=== PATIENT | male | born 1950 | race Caucasian/White ===

== ENCOUNTER 2018-01-27 08:27 | Inpatient (IN) ==
--- OUTSIDE RECORDS SUMMARY | 2018-01-27 07:53 | External Medical Summary | Summary of Care ---
:1950 Author Name Juan Miguel Martin M.D. Address [address] [place] [address] [place] [address] Care Team Providers Name Role Phone Juan Miguel Martin M.D. 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 Quantity: 30 Refills: 0 Juan Miguel Martin M.D. Start : 26-Aug-2015 Active Multivitamins Oral Capsule TAKE 1 CAPSULE DAILY. Refills: 0 Start : 26-Aug-2015 Active Tamsulosin HCl - 0.4 MG Oral Capsule TAKE 1 TABLET BY MOUTH DAILY Refills: 0 Start : 26-Aug-2015 Active Sertraline HCl - 100 MG Oral Tablet TAKE 1 TABLET DAILY. Refills: 0 Start : 26-Aug-2015 Active Atorvastatin Calcium 10 MG Oral Tablet TAKE 1 TABLET DAILY. Refills: 0 Start : 26-Aug-2015 Active Potassium Citrate ER 10 MEQ (1080 MG) Oral Tablet Extended Release TAKE 1 TABLET TWICE DAILY. Quantity: 180 Refills: 3 Juan Miguel Martin M.D. Start : 12-Dec-2015 Active Labetalol HCl - 200 MG Oral Tablet TAKE 1 TABLET TWICE DAILY. Refills: 0 Juan Miguel Martin M.D. Start : 10-Mar-2016 Active ZyrTEC Allergy 10 MG Oral Tablet TAKE 1 TABLET AT BEDTIME. Refills: 0 Juan Miguel Martin M.D. Start : 10-Mar-2016 Active Aspirin 325 MG Oral Tablet TAKE 1 TABLET DAILY. Refills: 0 Start : 10-Mar-2016 Active Fenofibrate 160 MG Oral Tablet TAKE 1 TABLET DAILY. Refills: 0 Start : 10-Mar-2016 Active Tradjenta 5 MG Oral Tablet TAKE 1 TABLET DAILY. Refills: 0 Start : 10-Mar-2016 Active Omeprazole 20 MG Oral Capsule Delayed Release TAKE 1 CAPSULE DAILY. Refills: 0 Start : 10-Mar-2016 Active AmLODIPine Besylate 10 MG Oral Tablet TAKE 1 TABLET DAILY. Refills: 0 Cho M.Juan Miguel Jo Start : 10-Mar-2016 Active Fluticasone Propionate 50 MCG/ACT Nasal Suspension USE 1 SPRAY IN EACH NOSTRIL ONCE DAILY. Refills: 0 Start : 10-Mar-2016 Active HydroCHLOROthiazide 25 MG Oral Tablet TAKE 1/2 TABLET DAILY. Refills: 0 Cho M.DJuan Miguel Grande Start : 09-Mar-2017 Active Allergies and Adverse Reactions Name Dates Details Dilaudid (Allergy) Status: Active NIFEdipine (Allergy) Status: Denied oxycodone (Allergy) Status: Active OxyCONTIN T12A (Allergy) Status: Active Penicillins (Allergy) Status: Active tramadol (Allergy) Status: Active trazodone (Allergy) Status: Active Past Medical History Name Dates Details History of Anxiety (300.00, F41.9) Status: Resolved History of Benign essential HTN (401.1, I10) Status: Resolved History of chronic kidney disease (V13.09, Z87.448) Status: Resolved History of Chronic pain (338.29, G89.29) Status: Resolved History of chronic sinusitis (V12.69, Z87.09) Status: Resolved History of Depressive disorder (311, F32.9) Status: Resolved History of Dysmetabolic syndrome X (277.7, E88.81) Status: Resolved History of Elevated serum creatinine (790.99, R79.89) Status: Resolved History of Encounter for postoperative care (V58.49, Z48.89) Status: Resolved History of hypercholesterolemia (V12.29, Z86.39) Status: Resolved History of Hyperuricemia (790.6, E79.0) Status: Resolved History of insomnia (., Z87.898) Status: Resolved History of renal calculi (V13.01, Z87.442) Status: Resolved History of right flank pain (, Z87.898) Status: Resolved Procedures Procedure Dates Details PSA ( PROSTATE SPECIFIC ANTIGEN) 3100 Date: 10-Mar-2017 Testosterone 3102 Date: 10-Mar-2017 History of Renal Lithotripsy Completed History of Transurethral Resection Of Prostate (TURP) Completed History of Hernia Repair Completed History of Neuroplasty Decompression Median Nerve At Completed Carpal Tunnel History of Septoplasty Completed History of Arterial Catheterization Completed History of Intraoperative Transluminal Angioplasty Renal Completed Artery Immunization Name Dates Details Immunizations not documented Family History Unknown Family Member Name Dates Details Family history of High triglycerides (272.1, E78.1) Comments: Family History Status: Active Family history of diabetes mellitus (V18.0, Z83.3) Comments: Family History Status: Active No family history of breast cancer Comments: Family History Status: Active No family history of cancer (V49.89, Z78.9) Comments: Family History Status: Active Social History Name Dates Details - Status: Smoking Status Name Dates Details Never smoker Vital Signs Date Test Result Details [id number] BP Systolic 116 mm[Hg] Status: Comments: Location: Wrist Cuff; Position: Sitting BP Diastolic 65 mm[Hg] Status: Comments: Location: Wrist Cuff; Position: Sitting Heart Rate 65 /min Status: Comments: Location: R Radial; Respiration Rate 16 /min Status: Results Date Description Value Details Results not documented Plan of Care Name Dates Details Planned Observations PSA ( PROSTATE SPECIFIC ANTIGEN) 3100 On: 10-Mar-2017 Intent Testosterone 3102 On: 10-Mar-2017 Intent Planned Goals not documented Planned Encounters Appointment; Juan Miguel Martin M.D. On: 08-Mar-2018 10:45 Instructions Name Dates Details Instructions not documented Encounters Appointment; Juan Miguel Martin M.D. On: 10-Mar-2016 10:30 Encounter Diagnosis: Problem not documented Appointment; Juan Miguel Martin M.D. On: 09-Mar-2017 10:30 Encounter Diagnosis: Problem not documented
--- OUTSIDE RECORDS SUMMARY | 2018-01-27 07:53 | External Medical Summary | Summary of Care ---
:1950 Author Name Juan Miguel Martin M.D. Address [address] [place] [address] [place] [address] Care Team Providers Name Role Phone Juan Miguel Martin M.D. 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 Quantity: 90 Refills: 3 Juan Miguel Martin M.D. Start 26-Aug-2015 Active Multivitamins Oral Capsule TAKE 1 CAPSULE DAILY. Refills: 0 Start 26-Aug-2015 Active Tamsulosin HCl - 0.4 MG Oral Capsule TAKE 1 TABLET BY MOUTH DAILY Refills: 0 Start 26-Aug-2015 Active Gemfibrozil 600 MG Oral Tablet TAKE 1 TABLET DAILY. Refills: 0 Start 26-Aug-2015 Active AMILoride-HydroCHLOROthiazide 5-50 MG Oral Tablet TAKE 1 TABLET ONCE DAILY. Refills: 0 Start 26-Aug-2015 Active Sertraline HCl - 100 MG Oral Tablet TAKE 1 TABLET DAILY. Refills: 0 Start 26-Aug-2015 Active Mirtazapine 15 MG Oral Tablet TAKE 1 TABLET AT BEDTIME. Refills: 0 Start 26-Aug-2015 Active Atorvastatin Calcium 10 MG Oral Tablet TAKE 1 TABLET DAILY. Refills: 0 Start 26-Aug-2015 Active Potassium Citrate ER 10 MEQ (1080 MG) Oral Tablet Extended Release TAKE 1 TABLET TWICE DAILY. Quantity: 180 Refills: 3 Juan Miguel Martin M.D. Start 12-Dec-2015 Active Labetalol HCl - 200 MG Oral Tablet TAKE 1 TABLET TWICE DAILY. Refills: 0 Juan Miguel Martin M.D. Start Active ZyrTEC Allergy 10 MG Oral Tablet TAKE 1 TABLET AT BEDTIME. Refills: 0 Mario Partida.Sandro Juan Miguel Start Active Aspirin 325 MG Oral Tablet TAKE 1 TABLET DAILY. Refills: 0 Start Active Fenofibrate 160 MG Oral Tablet TAKE 1 TABLET DAILY. Refills: 0 Start Active Tradjenta 5 MG Oral Tablet TAKE 1 TABLET DAILY. Refills: 0 Start Active Omeprazole 20 MG Oral Capsule Delayed Release TAKE 1 CAPSULE DAILY. Refills: 0 Start Active AmLODIPine Besylate 10 MG Oral Tablet TAKE 1 TABLET DAILY. Refills: 0 Mario M.DHarjinder Juan Miguel Start Active Fluticasone Propionate 50 MCG/ACT Nasal Suspension USE 1 SPRAY IN EACH NOSTRIL ONCE DAILY. Refills: 0 Start Active Allergies and Adverse Reactions Name Dates Details Dilaudid (Allergy) Status: Active NIFEdipine (Allergy) Status: Active oxycodone (Allergy) Status: Active OxyCONTIN T12A (Allergy) [...] postoperative care (V58.49, Z48.89) Status: Resolved History Of Hypercholesterolemia (V12.29, Z86.39) Status: Resolved History of Hyperuricemia (790.6, E79.0) Status: Resolved History of insomnia (V13.89, Z87.898) Status: Resolved History of renal calculi (V13.01, Z87.442) Status: Resolved History of right flank pain (V13.89, Z87.898) Status: Resolved Procedures Procedure Dates Details History of Renal Lithotripsy History of Transurethral Resection Of Prostate (TURP) History of Hernia Repair History of Neuroplasty Decompression Median Nerve At Carpal Tunnel History of Septoplasty History of Arterial Catheterization History of Intraoperative Transluminal Angioplasty Renal Artery PSA ( PROSTATE SPECIFIC ANTIGEN) 3100 Ordered: Immunization Name Dates Details Immunizations not documented [...] smoker Vital Signs Date Test Result Details 11:15 BP Systolic 159 mm[Hg] Status: Comments: Location: ; Position: BP Diastolic 85 mm[Hg] Status: Comments: Location: ; Position: Heart Rate 64 /min Status: Comments: Location: ; Height 69 in Status: Weight 175 lb Status: Body Mass Index Calculated 25.84 kg/m2 Status: Body Surface Area Calculated 1.95 m2 Status: Results Date Description Value Details Results not documented Plan of Care Name Dates Details Planned Observations Planned Goals not documented Planned Encounters Appointment; Provider: Juan Miguel Martin M.D. On 10:30 Interventions Provided Labs/Procedures/ImagingPSA ( PROSTATE SPECIFIC ANTIGEN) 3100; To be Done: 10 Mar 2016 Instructions Name Dates Details Instructions not documented Encounters Appointment; Juan Miguel Martin M.D. On Encounter Diagnosis: Problem not documented 10:30
--- OUTSIDE RECORDS SUMMARY | 2018-01-27 07:53 | External Medical Summary | CCD ---
:1950 Author Name CHARLIE ALVARENGA Address [address] [place], [place] [id number] Care Team Providers Name Role Phone BETY MARIANO Attending Physician Unavailable SAMI Agustin Registered Nurse Unavailable C., DEYA Velasquez Nursing Staff Unavailable Vital Signs Vital Sign Value Unit Date/Time Recent/Initial? Weight Measured 174 lbs 01/20/2016 08:26 Initial VS Height 69 in 01/20/2016 08:26 Initial VS BMI (Body Mass 25.7 kg/m^2 01/20/2016 08:26 Initial VS Index) BSA (Body Surface 1.96 m^2 01/20/2016 08:26 Initial VS Area) Allergies Allergy Code Allergy Type Reaction Status OXYCONTIN 938712 Drug allergy Active LATEX 0 Allergy to Active substance TRAZODONE 28942 Drug allergy Active NIFEDIPINE 7417 Drug allergy Active LORTAB 303779 Drug allergy Active DILAUDID 884365 Drug allergy Active LOSARTAN 7417 Drug allergy Active PENICILLIN 49741 Drug allergy Active LISINOPRIL 7417 Drug allergy Active OXYCODONE 7804 Drug allergy Active Procedures Procedure Code Procedure Type Date Repair, Initial Inguinal 13264 CPT 01/20/2016 Hernia, Age 5+; Reducible Anesthesia For Hernia 32031 CPT 01/20/2016 Repairs In Lower Abdomen; NOS History of Immunizations Immunization Code Date influenza, unspecified formulation 88 06/14/2012 tetanus toxoid, unspecified 112 08/14/2009 formulation Problems Unknown or Not Available. Results Unknown or Not Available. Active Medications Unknown or Not Available. Medications Administered During Visit Unknown or Not Available. Encounters Encounter Diagnosis Diagnosis Code Start Date Unilateral inguinal hernia, K4090 01/20/2016 without obstruction or gangrene, not specified as recurrent Social History Smoking Status Code Start Date End Date Never smoker [id number] Patient Decision Aids Unknown or Not Available. Discharge Instructions You were admitted to [facility] on 01/20/2016 08:05 with a principal diagnosis of Unil inguinal hernia, w/o obst or gangr, not spcf as re You had the following procedures done: Repair, Initial Inguinal Hernia, Age 5+; Reducible Anesthesia For Hernia Repairs In Lower Abdomen; NOS You were discharged from [facility] on 01/20/2016 13:27 Should you have any questions prior to discharge, please contact a member of your healthcare team. If you have left the hospital and have any questions, please contact your primary care physician. Chief Complaint and Reason For Visit Chief Complaint Date of Onset HERNIA REPAIR Function Status Unknown or Not Available. Plan of Care Unknown or Not Available. Referral/Transition of Care Unknown or Not Available.
--- OUTSIDE RECORDS SUMMARY | 2018-01-27 07:53 | External Medical Summary | CCD ---
:1950 Author Name CHARLIE ALVARENGA Address [address], [place] [id number] Care Team Providers Name Role Phone DANIEL LAU Attending Physician Unavailable EVON FAUSTIN (Secondary) Physician Unavailable Vital Signs Unknown or Not Available. Allergies Allergy Code Allergy Type Reaction Status OXYCONTIN 457496 Drug allergy Active LATEX 0 Allergy to Active substance TRAZODONE 76595 Drug allergy Active NIFEDIPINE 7417 Drug allergy Active LORTAB 443847 Drug allergy Active DILAUDID 314138 Drug allergy Active LOSARTAN 7417 Drug allergy Active PENICILLIN 26815 Drug allergy Active LISINOPRIL 7417 Drug allergy Active OXYCODONE 7804 Drug allergy Active Procedures Unknown or Not Available. History of Immunizations Immunization Code Date influenza, unspecified formulation 88 06/14/2012 tetanus toxoid, unspecified 112 08/14/2009 formulation Problems Unknown or Not Available. Results RENAL FUNCTION PANEL - Collect Date/Time: 03/11/2016 14:22 Test Name Code Test Result Test Units Test Ref Range GLUCOSE 100 mg/dL L=70 H=110 BUN 25 mg/dL L=7 H=18 CREATININE 1.91 mg/dL L=0.60 H=1.30 AGE 65 YEARS GFR 35.8 SODIUM 139 mmol/L L=136 H=145 POTASSIUM 3.7 mmol/L L=3.5 H=5.1 CHLORIDE 102 mmol/L L=98 H=107 CO2 26 mmol/L L=21 H=32 CALCIUM 9.4 mg/dL L=8.5 H=10.1 ALBUMIN 4.4 g/dL L=3.4 H=5.0 PHOSPHORUS 3.5 mg/dL L=2.6 H=4.7 Active Medications Unknown or Not Available. Medications Administered During Visit Unknown or Not Available. Encounters Encounter Diagnosis Diagnosis Code Start Date Chronic kidney disease, stage N183 03/11/2016 3 (moderate) Social History Smoking Status Code Start Date End Date Never smoker [id number] Patient Decision Aids Unknown or Not Available. Discharge Instructions You were admitted to [facility] on 03/11/2016 14:13 with a principal diagnosis of Chronic kidney disease, stage 3 (moderate) You had the following tests done: RENAL FUNCTION PANEL You were discharged from [facility] on 03/11/2016 14:13 Should you have any questions prior to discharge, please contact a member of your healthcare team. If you have left the hospital and have any questions, please contact your primary care physician. Chief Complaint and Reason For Visit Chief Complaint Date of Onset LAB Function Status Unknown or Not Available. Plan of Care Unknown or Not Available. Referral/Transition of Care Unknown or Not Available.
--- OUTSIDE RECORDS SUMMARY | 2018-01-27 07:53 | External Medical Summary | CCD ---
:1950 Author Name CHARLIE ALVARENGA Address [address] [place], [place] [id number] Care Team Providers Name Role Phone DANIEL LAU Attending Physician Unavailable EVON FAUSTIN (Secondary) Physician Unavailable Vital Signs Unknown or Not Available. Allergies Allergy Code Allergy Type Reaction Status OXYCONTIN 821077 Drug allergy Active LATEX 0 Allergy to Active substance TRAZODONE 15590 Drug allergy Active NIFEDIPINE 7417 Drug allergy Active LORTAB 381342 Drug allergy Active DILAUDID 580610 Drug allergy Active LOSARTAN 7417 Drug allergy Active PENICILLIN 31766 Drug allergy Active LISINOPRIL 7417 Drug allergy Active OXYCODONE 7804 Drug allergy Active Procedures Unknown or Not Available. History of Immunizations Immunization Code Date influenza, unspecified formulation 88 06/14/2012 tetanus toxoid, unspecified 112 08/14/2009 formulation Problems Unknown or Not Available. Results RENAL FUNCTION PANEL - Collect Date/Time: 08/09/2016 08:30 Test Name Code Test Result Test Units Test Ref Range GLUCOSE 141 mg/dL L=70 H=110 BUN 21 mg/dL L=7 H=18 CREATININE 1.82 mg/dL L=0.60 H=1.30 AGE 65 YEARS GFR 37.8 L=60.0 H=120 SODIUM 140 mmol/L L=136 H=145 POTASSIUM 3.5 mmol/L L=3.5 H=5.1 CHLORIDE 105 mmol/L L=98 H=107 CO2 24 mmol/L L=21 H=32 CALCIUM 9.3 mg/dL L=8.5 H=10.1 ALBUMIN 4.3 g/dL L=3.4 H=5.0 PHOSPHORUS 3.1 mg/dL L=2.6 H=4.7 UA AUTO W/ MICRO - Collect Date/Time: 08/09/2016 08:33 Test Name Code Test Result Test Units Test Ref Range COLOR Yellow N/A NORMAL: Yellow APPEARANCE Clear N/A NORMAL: Clear GLUCOSE Negative N/A NORMAL: Negative BILIRUBIN Negative N/A NORMAL: Negative KETONE Negative N/A NORMAL: Negative SPEC GRAVITY 1.025 N/A NORMAL: 1.005-1.030 BLOOD Negative N/A NORMAL: Negative PROTEIN Negative N/A NORMAL: Negative PH 5.5 N/A NORMAL: 5.0-8.0 UROBILINOGEN 0.2 N/A NORMAL: Negative NITRITE Negative N/A NORMAL: Negative LEUKOCYTES Negative N/A NORMAL: Negative MICRO RBC None Seen N/A NORMAL: 0-2 MICRO WBC 0-2 N/A NORMAL: 0-2 BACTERIA None Seen N/A NORMAL: None-Trace EPI CELLS 0-5 N/A NORMAL: 0-15 MUCUS None Seen N/A NORMAL: None-Small AMORPHOUS None Seen N/A NORMAL: None Seen YEAST None Seen N/A NORMAL: None Seen CRYSTALS None Seen N/A NORMAL: None Seen CAST None Seen N/A NORMAL: None Seen URINE CULTURE? NO N/A CULTURE URINE - Collect Date/Time: 08/09/2016 08:33 Test Name Code Test Result Test Units Test Ref Range SPEC SOURCE: CLEAN CATCH N/A Urine Culture, 630-4 Final report N/A Routine Active Medications Unknown or Not Available. Medications Administered During Visit Unknown or Not Available. Encounters Encounter Diagnosis Diagnosis Code Start Date Chronic kidney disease, stage N183 08/09/2016 3 (moderate) Social History Smoking Status Code Start Date End Date Never smoker [id number] Patient Decision Aids Unknown or Not Available. Discharge Instructions You were admitted to [facility] on 08/09/2016 08:25 with a principal diagnosis of Chronic kidney disease, stage 3 (moderate) You had the following tests done: CULTURE URINE RENAL FUNCTION PANEL UA AUTO W / MICRO You were discharged from [facility] on 08/09/2016 08:26 Should you have any questions prior to [...]
--- OUTSIDE RECORDS SUMMARY | 2018-01-27 07:53 | External Medical Summary | Referral Summary ---
:1950 Author Organization [facility] Address [address] [place] [address] Care Team Providers Name Role Phone Peggy Flor Primary Care Physician Encounter VC Date(s): 04/11/17 - 04/11/17 [facility] [address] [place] [address] [phone] Discharge Disposition: 01-Home or Self Care Attending Physician: Bradley Weston MD Vital Signs Most recent to oldest [Reference Range]: 1 Temperature Oral [35.8-37.3 degC] 36.4 degC (04/11/17 10:42 AM) Temperature Temporal Artery [36.3-37.8 degC] 36.4 degC (04/11/17 10:42 AM) Apical Heart Rate [60-100 bpm] 60 bpm (04/11/17 10:42 AM) Respiratory Rate [14-20 br/min] 12 br/min *LOW* (04/11/17 10:42 AM) Allergies, Adverse Reactions, Alerts Substance Reaction Severity Status HYDROmorphone Active penicillin Active Medications allopurinol 300 mg oral tablet mg tabs, Oral, Daily, 0 Refill(s) Start Date: 04/11/17 Status: Orderedatorvastatin 20 mg oral tablet mg tabs, Oral, Daily, 0 Refill(s) Start Date: 04/11/17 Status: Orderedcetirizine Daily, 0 Refill(s) Start Date: 04/11/17 Status: Orderedfluticasone 50 mcg inhalation powder Inhalation, BID, 0 Refill(s) Start Date: 04/11/17 Status: Orderedlabetalol 300 mg oral tablet mg tabs, Oral, BID, 0 Refill(s) Start Date: 04/11/17 Status: OrderedMultiple Vitamins oral capsule caps, Oral, Daily, 0 Refill(s) Start Date: 04/11/17 Status: OrderedNIFEdipine 90 mg oral tablet, extended release mg tabs, Oral, Daily, 0 Refill(s) Start Date: 04/11/17 Status: Orderedpotassium citrate 10 mEq oral tablet, extended release mEq tabs, Oral, TID, 0 Refill(s) Start Date: 04/11/17 Status: OrderedraNITIdine 150 mg oral capsule mg caps, Oral, BID, 0 Refill(s) Start Date: 04/11/17 Status: Orderedsertraline 100 mg oral tablet mg tabs, Oral, Daily, 0 Refill(s) Start Date: 04/11/17 Status: Orderedtamsulosin 0.4 mg oral capsule mg caps, Oral, Daily, 0 Refill(s) Start Date: 04/11/17 Status: OrderedTradjenta 5 mg oral tablet 5 mg 1 tabs, Oral, Daily, # 30 tabs, 0 Refill(s) Start Date: 04/11/17 Status: OrderedtraMADol 50 mg oral tablet mg tabs, Oral, q4hr, 0 Refill(s) Start Date: 04/11/17 Status: Orderedtriamcinolone 0.1% topical cream lavinia, Topical, TID, 0 Refill(s) Start Date: 04/11/17 Status: OrderedTriCor 145 mg oral tablet mg tabs, Oral, Daily, 0 Refill(s) Start Date: 04/11/17 Status: OrderedZofran 4 mg oral tablet mg tabs, Oral, q8hr, 0 Refill(s) Start Date: 04/11/17 Status: Ordered Procedures Procedure Date Related Diagnosis Body Site Acid Test Esophageal (Right, Nose)1 04/11/17 Motility Esophageal (Right, Nose)2 04/11/17 Colonoscopy3 Esophagogastroduodenoscopy Hernia, inguinal Kidney calculi Nasal function study Tuna4 [place] tooth Wrist5 1auto-populated from documented surgical [id number] from documented surgical [id number] for [id number] carpal tunel surgery Social History Social History Type Response Smoking Status Never smoker
--- OUTSIDE RECORDS SUMMARY | 2018-01-27 07:53 | External Medical Summary | CCD ---
:1950 Author Name CHARLIE ALVARENGA Address [address], [place] [id number] Care Team Providers Name Role Phone DANIEL LAU Attending Physician Unavailable EVON FAUSTIN (Secondary) Physician Unavailable Vital Signs Unknown or Not Available. Allergies Allergy Code Allergy Type Reaction Status OXYCONTIN 111502 Drug allergy Active LATEX 0 Allergy to Active substance TRAZODONE 90346 Drug allergy Active NIFEDIPINE 7417 Drug allergy Active LORTAB 902128 Drug allergy Active DILAUDID 633921 Drug allergy Active LOSARTAN 7417 Drug allergy Active PENICILLIN 52385 Drug allergy Active LISINOPRIL 7417 Drug allergy Active OXYCODONE 7804 Drug allergy Active Procedures Unknown or Not Available. History of Immunizations Immunization Code Date influenza, unspecified formulation 88 06/14/2012 tetanus toxoid, unspecified 112 08/14/2009 formulation Problems Unknown or Not Available. Results RENAL FUNCTION PANEL - Collect Date/Time: 11/05/2015 08:30 Test Name Code Test Result Test Units Test Ref Range GLUCOSE 183 mg/dL L=70 H=110 BUN 23 mg/dL L=7 H=18 CREATININE 1.93 mg/dL L=0.60 H=1.30 AGE 64 YEARS GFR 35.5 SODIUM 140 mmol/L L=136 H=145 POTASSIUM 3.6 mmol/L L=3.5 H=5.1 CHLORIDE 104 mmol/L L=98 H=107 CO2 25 mmol/L L=21 H=32 CALCIUM 8.9 mg/dL L=8.5 H=10.1 ALBUMIN 4.5 g/dL L=3.4 H=5.0 PHOSPHORUS 3.4 mg/dL L=2.5 H=4.9 CBC (HEMOGRAM ONLY) - Collect Date/Time: 11/05/2015 08:30 Test Name Code Test Result Test Units Test Ref Range WBC 7.0 x10^3 L=4.8 H=10.8 RBC 4.60 x10^6 L=4.70 H=6.10 HEMOGLOBIN 14.0 g/dL L=14.0 H=18.0 HEMATOCRIT 42.4 % L=42.0 H=52.0 MCV 92 fL L=80 H=100 MCH 30.3 pg L=27.0 H=33.0 MCHC 33.0 g/dL L=33.0 H=37.0 RDW 13.3 % L=11.5 H=14.5 PLATELETS 426 x10^3 L=150 H=450 MPV 7.4 fL L=7.8 H=11.0 PROTEIN ELECTROPHORESIS, 24-HR URINE - Collect Date/Time: 11/05/2015 07:00 Test Name Code Test Result Test Units Test Ref Range Protein,Total,Urine 2888-6 4.0 mg/dL 0.0-15.0 Prot,24hr calculated 2889-4 100.0 30.0-150[place]0 [place] [address]-7 28.7 % NOT ESTAB. Nzrvl-5-Lcphwx[place] [address]-8 0.8 % NOT ESTAB. [place]ccut-[place] [address]-1 10.3 % [place] [address]-5 31.6 % [place] [address]-3 28.5 % NOT ESTAB. TOTAL VOLUME: 2500 N/A M-Drake, % 42783-6 Not Observed N/A Not Observed M-Drake, mg/24 hr 00543-6 HEAD OF DATA N/A PROTEIN ELECTROPHORESIS, SERUM - Collect Date/Time: 11/05/2015 08:30 Test Name Code Test Result Test Units Test Ref Range Protein, Total, 2885-2 7.3 g/dL 6.0-8.5 Serum Albumin 2862-1 4.1 g/dL 3.2-5.6 Kpnno-7-Ptawryfd 2865-4 0.2 g/dL 0.1-0.4 Vecys-6-Phixnyfp 2868-8 0.7 g/dL 0.4-1.2 Beta Globulin 2871-2 1.3 g/dL 0.6-1.3 Gamma Globulin 2874-6 1.0 g/dL 0.5-1.6 Globulin, Total 94578-5 3.2 g/dL 2.0-4.5 A/G Ratio 1759-0 1.3 0.7-2.0 M-Drake 33548-9 Not Observed N/A Not Observed PTH, INTACT - Collect Date/Time: 11/05/2015 08:30 Test Name Code Test Result Test Units Test Ref Range PTH, Intact 2731-8 14 pg/mL 15-65 Active Medications Unknown or Not Available. Medications Administered During Visit Unknown or Not Available. Encounters Unknown or Not Available. Social History Smoking Status Code Start Date End Date Never smoker [id number] Patient Decision Aids Unknown or Not Available. Discharge Instructions You were admitted to [facility] on 11/05/2015 08:23 You had the following tests done: CBC (HEMOGRAM ONLY) PROTEIN ELECTROPHORESIS, 24-HR URINE PROTEIN ELECTROPHORESIS, SERUM PTH, INTACT RENAL FUNCTION PANEL You were discharged from [facility] on 11/13/2015 23:59 Should you have any questions prior to discharge, please contact a member of your healthcare team. If you have left the hospital and have any questions, please contact your primary care physician. Chief Complaint and Reason For Visit Chief Complaint Date of Onset LAB RECURRING Function Status Unknown or Not Available. Plan of Care Unknown or Not Available. Referral/Transition of Care Unknown or Not Available.
--- OUTSIDE RECORDS SUMMARY | 2018-01-27 07:53 | External Medical Summary | CCD ---
:1950 Author Name CHARLIE ALVARENGA Address [address], [place] [phone] Care Team Providers Name Role Phone TAMIE ANNE Attending Physician Unavailable TAMIE ANNE Er Physician 1 Unavailable Vital Signs Unknown or Not Available. Allergies Allergy Code Allergy Type Reaction Status OXYCONTIN 524654 Drug allergy Active LATEX 0 Allergy to Active substance TRAZODONE 75326 Drug allergy Active NIFEDIPINE 7417 Drug allergy Active LORTAB 538633 Drug allergy Active DILAUDID 186090 Drug allergy Active LOSARTAN 7417 Drug allergy Active PENICILLIN 44525 Drug allergy Active LISINOPRIL 7417 Drug allergy Active OXYCODONE 7804 Drug allergy Active Procedures Unknown or Not Available. History of Immunizations Immunization Code Date influenza, unspecified formulation 88 06/14/2012 tetanus toxoid, unspecified 112 08/14/2009 formulation Problems Unknown or Not Available. Results BASIC METABOLIC - Collect Date/Time: 04/26/2016 15:56 Test Name Code Test Result Test Units Test Ref Range GLUCOSE 96 mg/dL L=70 H=110 BUN 25 mg/dL L=7 H=18 CREATININE 1.68 mg/dL L=0.60 H=1.30 AGE 65 YEARS GFR 41.5 SODIUM 142 mmol/L L=136 H=145 POTASSIUM 3.6 mmol/L L=3.5 H=5.1 CHLORIDE 105 mmol/L L=98 H=107 CO2 25 mmol/L L=21 H=32 CALCIUM 9.5 mg/dL L=8.5 H=10.1 CARDIAC PANEL - Collect Date/Time: 04/26/2016 15:56 Test Name Code Test Result Test Units Test Ref Range CKMB 1.9 ng/mL L=0.0 H=3.6 CPK 463 U/L L=26 H=308 CKMB% 0.4 % L=0.0 H=4.0 TROPONIN I 0.02 ng/mL L=0.00 H=0.05 CBC W/ DIFF - Collect Date/Time: 04/26/2016 15:56 Test Name Code Test Result Test Units Test Ref Range WBC 7.5 x10^3 L=4.8 H=10.8 RBC 4.33 x10^6 L=4.70 H=6.10 HEMOGLOBIN 13.3 g/dL L=14.0 H=18.0 HEMATOCRIT 39.8 % L=42.0 H=52.0 MCV 92 fL L=80 H=100 MCH 30.8 pg L=27.0 H=33.0 MCHC 33.5 g/dL L=33.0 H=37.0 RDW 13.5 % L=11.5 H=14.5 PLATELETS 395 x10^3 L=150 H=450 MPV 6.7 fL L=7.8 H=11.0 NEUTROPHILS 65.1 % L=40.0 H=80.0 LYMPHOCYTES 23.2 % L=20.0 H=45.0 MONOCYTES 11.7 % L=0.0 H=10.0 EOSINOPHILS 0.0 % L=0.0 H=5.0 BASOPHILS 0.0 % L=0.0 H=2.0 REFLEX MAN DIFF NO N/A Active Medications Unknown or Not Available. Medications Administered During Visit Unknown or Not Available. Encounters Encounter Diagnosis Diagnosis Code Start Date Syncope and collapse R55 04/26/2016 Social History Smoking Status Code Start Date End Date Never smoker [id number] Patient Decision Aids Unknown or Not Available. Discharge Instructions You were admitted to [facility] on 04/26/2016 15:17 with a principal diagnosis of Syncope and collapse You had the following tests done: BASIC METABOLIC CARDIAC PANEL CBC W/ DIFF You were discharged from [facility] on 04/26/2016 18:06 Should you have any questions prior to discharge, please contact a member of your healthcare team. If you have left the hospital and have any questions, please contact your primary care physician. Chief Complaint and Reason For Visit Chief Complaint Date of Onset TROUBLE CONCENTRATING Function Status Unknown or Not Available. Plan of Care Unknown or Not Available. Referral/Transition of Care Unknown or Not Available.
--- OUTSIDE RECORDS SUMMARY | 2018-01-27 07:53 | External Medical Summary | CCD ---
:1950 Author Name CHARLIE ALVARENGA Address [address], [place] [phone] Care Team Providers Name Role Phone SKYLAR HOROWITZ Attending Physician Unavailable SKYLAR HOROWITZ Er Physician 1 Unavailable Vital Signs Vital Sign Value Unit Date/Time Recent/Initial? Weight Measured 176.6 lbs 10/10/2016 23:38 Initial VS Height 69 in 10/10/2016 23:38 Initial VS BMI (Body Mass 26.08 kg/m^2 10/10/2016 23:38 Initial VS Index) BSA (Body Surface 1.97 m^2 10/10/2016 23:38 Initial VS Area) Allergies Allergy Code Allergy Type Reaction Status OXYCONTIN 451636 Drug allergy Active LATEX 0 Allergy to Active substance TRAZODONE 46849 Drug allergy Active NIFEDIPINE 7417 Drug allergy Active LORTAB 348230 Drug allergy Active DILAUDID 786610 Drug allergy Active LOSARTAN 7417 Drug allergy Active PENICILLIN 66342 Drug allergy Active LISINOPRIL 7417 Drug allergy Active OXYCODONE 7804 Drug allergy Active Procedures Unknown or Not Available. History of Immunizations Immunization Code Date influenza, unspecified formulation 88 06/14/2012 tetanus toxoid, unspecified 112 08/14/2009 formulation Problems Unknown or Not Available. Results BASIC METABOLIC - Collect Date/Time: 10/10/2016 22:35 Test Name Code Test Result Test Units Test Ref Range GLUCOSE 119 mg/dL L=70 H=110 BUN 28 mg/dL L=7 H=18 CREATININE 1.78 mg/dL L=0.60 H=1.30 AGE 65 YEARS GFR 38.8 L=60.0 H=120 SODIUM 139 mmol/L L=136 H=145 POTASSIUM 3.3 mmol/L L=3.5 H=5.1 CHLORIDE 105 mmol/L L=98 H=107 CO2 26 mmol/L L=21 H=32 CALCIUM 8.5 mg/dL L=8.5 H=10.1 Active Medications Unknown or Not Available. Medications Administered During Visit Unknown or Not Available. Encounters Encounter Diagnosis Diagnosis Code Start Date Drug-induced headache, not G4440 10/10/2016 elsewhere classified, not intractable Social History Smoking Status Code Start Date End Date Never smoker [id number] Patient Decision Aids Unknown or Not Available. Discharge Instructions You were admitted to [facility] on 10/10/2016 21:49 with a principal diagnosis of Drug-induced headache, NEC, not intractable You had the following tests done: BASIC METABOLIC You were discharged from [facility] on 10/10/2016 23:28 Should you have any questions prior to discharge, please contact a member of your healthcare team. If you have left the hospital and have any questions, please contact your primary care physician. Chief Complaint and Reason For Visit Chief Complaint Date of Onset HEADACHE, HTN 10/10/2016 Function Status Unknown or Not Available. Plan of Care Unknown or Not Available. Referral/Transition of Care Unknown or Not Available.
--- OUTSIDE RECORDS SUMMARY | 2018-01-27 07:53 | External Medical Summary | CCD ---
:1950 Author Name CHARLIE ALVARENGA Address [address] [place], [place] [phone] Care Team Providers Name Role Phone EVON FAUSTIN Attending Physician Unavailable Vital Signs Unknown or Not Available. Allergies Allergy Code Allergy Type Reaction Status OXYCONTIN 085580 Drug allergy Active LATEX 0 Allergy to Active substance TRAZODONE 08653 Drug allergy Active NIFEDIPINE 7417 Drug allergy Active LORTAB 460735 Drug allergy Active DILAUDID 765602 Drug allergy Active LOSARTAN 7417 Drug allergy Active PENICILLIN 96120 Drug allergy Active LISINOPRIL 7417 Drug allergy [...] Code Start Date Syncope and collapse R55 04/27/2016 Social History Smoking Status Code Start Date End Date Never smoker [id number] Patient Decision Aids Unknown or Not Available. Discharge Instructions You were admitted to [facility] on 04/27/2016 13:19 with a principal diagnosis of Syncope and collapse You were discharged from [facility] on 04/27/2016 13:20 Should you have any questions prior to discharge, please contact a member of your healthcare team. If you have left the hospital and have any questions, please contact your primary care physician. Chief Complaint and Reason For Visit Chief Complaint Date of Onset RAD Function Status Unknown or Not Available. Plan of Care Unknown or Not Available. Referral/Transition of Care Unknown or Not Available.
--- OUTSIDE RECORDS SUMMARY | 2018-01-27 07:54 | External Medical Summary | CCD ---
:1950 Author Name CHARLIE ALVARENGA Address [address] [place], [place] [phone] Care Team Providers Name Role Phone DANIEL LAU Attending Physician Unavailable TIMI FIGUEROA (Secondary) Physician Unavailable Vital Signs Unknown or Not Available. Allergies Allergy Code Allergy Type Reaction Status OXYCONTIN 530220 Drug allergy Active LATEX 0 Allergy to Active substance TRAZODONE 91912 Drug allergy Active NIFEDIPINE 7417 Drug allergy Active LORTAB 449032 Drug allergy Active DILAUDID 357399 Drug allergy Active LOSARTAN 7417 Drug allergy Active PENICILLIN 04098 Drug allergy Active LISINOPRIL 7417 Drug allergy Active OXYCODONE 7804 Drug allergy Active Procedures Unknown or Not Available. History of Immunizations Immunization Code Date influenza, unspecified formulation 88 06/14/2012 tetanus toxoid, unspecified 112 08/14/2009 formulation Problems Unknown or Not Available. Results RENAL FUNCTION PANEL - Collect Date/Time: 02/05/2016 14:21 Test Name Code Test Result Test Units Test Ref Range GLUCOSE 107 mg/dL L=70 H=110 BUN 30 mg/dL L=7 H=18 CREATININE 1.93 mg/dL L=0.60 H=1.30 AGE 65 YEARS GFR 35.3 SODIUM 142 mmol/L L=136 H=145 POTASSIUM 3.8 mmol/L L=3.5 H=5.1 CHLORIDE 105 mmol/L L=98 H=107 CO2 25 mmol/L L=21 H=32 CALCIUM 9.7 mg/dL L=8.5 H=10.1 ALBUMIN 4.3 g/dL L=3.4 H=5.0 PHOSPHORUS 3.4 mg/dL L=2.6 H=4.7 CBC (HEMOGRAM ONLY) - Collect Date/Time: 02/05/2016 14:21 Test Name Code Test Result Test Units Test Ref Range WBC 8.1 x10^3 L=4.8 H=10.8 RBC 4.29 x10^6 L=4.70 H=6.10 HEMOGLOBIN 13.0 g/dL L=14.0 H=18.0 HEMATOCRIT 39.0 % L=42.0 H=52.0 MCV 91 fL L=80 H=100 MCH 30.3 pg L=27.0 H=33.0 MCHC 33.3 g/dL L=33.0 H=37.0 RDW 13.3 % L=11.5 H=14.5 PLATELETS 451 x10^3 L=150 H=450 MPV 6.9 fL L=7.8 H=11.0 PTH, INTACT - Collect Date/Time: 02/05/2016 14:21 Test Name Code Test Result Test Units Test Ref Range PTH, Intact 2731-8 15 pg/mL 15-65 VITAMIN D (25-HYDROXY) - Collect Date/Time: 02/05/2016 14:21 Test Name Code Test Result Test Units Test Ref Range Vitamin D, 24108-3 20.5 ng/mL 30.0-100.0 25-Hydroxy Active Medications Unknown or Not Available. Medications Administered During Visit Unknown or Not Available. Encounters Encounter Diagnosis Diagnosis Code Start Date Chronic kidney disease, stage N183 02/05/2016 3 (moderate) Social History Smoking Status Code Start Date End Date Never smoker [id number] Patient Decision Aids Unknown or Not Available. Discharge Instructions You were admitted to [facility] on 02/05/2016 14:12 with a principal diagnosis of Chronic kidney disease, stage 3 (moderate) You had the following tests done: CBC (HEMOGRAM ONLY) PTH, INTACT RENAL FUNCTION PANEL VITAMIN D (25-HYDROXY) You were discharged from [facility] on 02/05/2016 14:12 Should you have any questions prior to [...]
--- OUTSIDE RECORDS SUMMARY | 2018-01-27 07:54 | External Medical Summary | CCD ---
:1950 Author Name CHARLIE ALVARENGA Address [address], [place] [phone] Care Team Providers Name Role Phone KASHIF DENG Attending Physician Unavailable Vital Signs Unknown or Not Available. Allergies Allergy Code Allergy Type Reaction Status OXYCONTIN 695642 Drug allergy Active LATEX 0 Allergy to Active substance TRAZODONE 09631 Drug allergy Active LORTAB 509017 Drug allergy Active DILAUDID 197526 Drug allergy Active PENICILLIN 86065 Drug allergy Active OXYCODONE 7804 Drug allergy Active Procedures Unknown or Not Available. History of Immunizations Immunization Code Date influenza, unspecified formulation 88 06/14/2012 tetanus toxoid, unspecified 112 08/14/2009 formulation Problems Unknown or Not Available. Results COMP METABOLIC - Collect Date/Time: 05/22/2015 15:55 Test Name Code Test Result Test Units Test Ref Range GLUCOSE 100 mg/dL L=70 H=110 BUN 24 mg/dL L=7 H=18 CREATININE 1.80 mg/dL L=0.60 H=1.30 AGE 64 YEARS GFR 40.8 SODIUM 139 mmol/L L=136 H=145 POTASSIUM 3.7 mmol/L L=3.5 H=5.1 CHLORIDE 102 mmol/L L=98 H=107 CO2 30 mmol/L L=21 H=32 CALCIUM 9.7 mg/dL L=8.5 H=10.1 AST 52 U/L L=15 H=37 ALT 93 U/L L=12 H=78 ALKALINE PHOS 66 U/L L=46 H=116 TOTAL PROTEIN 8.1 g/dL L=6.4 H=8.2 ALBUMIN 4.4 g/dL L=3.4 H=5.0 TOTAL BILI 0.50 mg/dL L=0.00 H=1.00 LDL CHOLESTEROL, DIRECT - Collect Date/Time: 05/22/2015 15:55 Test Name Code Test Result Test Units Test Ref Range LDL, DIRECT 82 mg/dL L=0 H=100 LIPID PANEL - Collect Date/Time: 05/22/2015 15:55 Test Name Code Test Result Test Units Test Ref Range CHOLESTEROL 175 mg/dL L=0 H=200 TRIGLYCERIDES 486 mg/dL L=30 H=150 HDL 31 mg/dL L=40 H=60 VLDL 97 mg/dL L=0 H=40 CHOL/HDL RISK 5.6 RATIO L=0.0 H=5.0 PT FASTING: NO N/A TRIG >400 NO LDL CALC N/A LDL, CALC N/A N/A Active Medications Unknown or Not Available. Medications Administered During Visit Unknown or Not Available. Encounters Encounter Diagnosis Diagnosis Code Start Date Hyperlipidemia, unspecified E785 05/22/2015 Social History Smoking Status Code Start Date End Date Never smoker [id number] Patient Decision Aids Unknown or Not Available. Discharge Instructions You were admitted to [facility] on 03/2015 with a principal diagnosis of Hyperlipidemia, unspecified. You were discharged from [facility] on 05/22/2015. Should you have any questions prior to discharge, please contact a member of your healthcare team. If you have left the hospital and have any questions, please contact your primary care physician. Chief Complaint and Reason For Visit Unknown or Not Available. Function Status Unknown or Not Available. Plan of Care Unknown or Not Available. Referral/Transition of Care Unknown or Not Available.
--- OUTSIDE RECORDS SUMMARY | 2018-01-27 07:54 | External Medical Summary | CCD ---
:1950 Author Name CHARLIE ALVARENGA Address [address] [facility] Unavailable [place], [place] [phone] Care Team Providers Name Role Phone TE LEA Attending Physician Unavailable TE LEA Er Physician 1 Unavailable Vital Signs Unknown or Not Available. Allergies Allergy Code Allergy Type Reaction Status OXYCONTIN 056526 Drug allergy Active LATEX 0 Allergy to Active substance TRAZODONE 53474 Drug allergy Active NIFEDIPINE 7417 Drug allergy Active LORTAB 136185 Drug allergy Active DILAUDID 352199 Drug allergy Active LOSARTAN 7417 Drug allergy Active PENICILLIN 51083 Drug allergy Active LISINOPRIL 7417 Drug allergy [...] Encounters Encounter Diagnosis Diagnosis Code Start Date Urethral stricture, unspecified N359 09/14/2015 Social History Smoking Status Code Start Date End Date Never smoker [id number] Patient Decision Aids Unknown or Not Available. Discharge Instructions You were admitted to [facility] on with a principal diagnosis of Urethral stricture, unspecified. You were discharged from [facility] on 09/14/2015. Should you have any questions prior to discharge, please contact a member of your healthcare team. If you have left the hospital and have any questions, please contact your primary care physician. Chief Complaint and Reason For Visit Chief Complaint Date of Onset R FLANK PAIN Function Status Unknown or Not Available. Plan of Care Unknown or Not Available. Referral/Transition of Care Unknown or Not Available.
--- OUTSIDE RECORDS SUMMARY | 2018-01-27 07:54 | External Medical Summary | CCD ---
:1950 Author Name CHARLIE ALVARENGA Address [address] [place], [place] [phone] Care Team Providers Name Role Phone BETY MARIANO Attending Physician Unavailable Vital Signs Unknown or Not Available. Allergies Allergy Code Allergy Type Reaction Status OXYCONTIN 779304 Drug allergy Active LATEX 0 Allergy to Active substance TRAZODONE 05585 Drug allergy Active NIFEDIPINE 7417 Drug allergy Active LORTAB 076706 Drug allergy Active DILAUDID 909058 Drug allergy Active LOSARTAN 7417 Drug allergy Active PENICILLIN 62966 Drug allergy Active LISINOPRIL 7417 Drug allergy [...] Encounters Encounter Diagnosis Diagnosis Code Start Date Abnormal findings on diagnostic R935 01/07/2016 imaging of other abdominal regions, including retroperitoneum Social History Smoking Status Code Start Date End Date Never smoker [id number] Patient Decision Aids Unknown or Not Available. Discharge Instructions You were admitted to [facility] on 01/07/2016 10:15 with a principal diagnosis of Abn findings on dx imaging of abd regions, inc retroper You were discharged from [facility] on 01/07/2016 10:15 Should you have any questions prior to discharge, please contact a member of your healthcare team. If you have left the hospital and have any questions, please contact your primary care physician. Chief Complaint and Reason For Visit Chief Complaint Date of Onset XR BARIUM ENEMA Function Status Unknown or Not Available. Plan of Care Unknown or Not Available. Referral/Transition of Care Unknown or Not Available.
--- OUTSIDE RECORDS SUMMARY | 2018-01-27 07:54 | External Medical Summary | CCD ---
:1950 Author Name CHARLIE ALVARENGA Address [address] [place], [place] [phone] Care Team Providers Name Role Phone EVON OSEGUERA Attending Physician Unavailable PAPITO CASTRO Rounding (Secondary) Physician Unavailable Vital Signs Unknown or Not Available. Allergies Allergy Code Allergy Type Reaction Status OXYCONTIN 074077 Drug allergy Active LATEX 0 Allergy to Active substance TRAZODONE 87695 Drug allergy Active NIFEDIPINE 7417 Drug allergy Active LORTAB 286467 Drug allergy Active DILAUDID 384094 Drug allergy Active LOSARTAN 7417 Drug allergy Active PENICILLIN 02292 Drug allergy Active LISINOPRIL 7417 Drug allergy Active OXYCODONE 7804 Drug allergy Active Procedures Unknown or Not Available. History of Immunizations Immunization Code Date influenza, unspecified formulation 88 06/14/2012 tetanus toxoid, unspecified 112 08/14/2009 formulation Problems Unknown or Not Available. Results COMP METABOLIC - Collect Date/Time: 09/15/2015 08:22 Test Name Code Test Result Test Units Test Ref Range GLUCOSE 128 mg/dL L=70 H=110 BUN 25 mg/dL L=7 H=18 CREATININE 2.00 mg/dL L=0.60 H=1.30 AGE 64 YEARS GFR 36.2 SODIUM 138 mmol/L L=136 H=145 POTASSIUM 4.1 mmol/L L=3.5 H=5.1 CHLORIDE 104 mmol/L L=98 H=107 CO2 26 mmol/L L=21 H=32 CALCIUM 9.0 mg/dL L=8.5 H=10.1 AST 38 U/L L=15 H=37 ALT 59 U/L L=12 H=78 ALKALINE PHOS 64 U/L L=46 H=116 TOTAL PROTEIN 7.6 g/dL L=6.4 H=8.2 ALBUMIN 4.0 g/dL L=3.4 H=5.0 TOTAL BILI 0.30 mg/dL L=0.00 H=1.00 CBC W/ DIFF - Collect Date/Time: 09/15/2015 08:22 Test Name Code Test Result Test Units Test Ref Range WBC 7.6 x10^3 L=4.8 H=10.8 RBC 4.35 x10^6 L=4.70 H=6.10 HEMOGLOBIN 13.7 g/dL L=14.0 H=18.0 HEMATOCRIT 40.6 % L=42.0 H=52.0 MCV 93 fL L=80 H=100 MCH 31.4 pg L=27.0 H=33.0 MCHC 33.7 g/dL L=33.0 H=37.0 RDW 12.6 % L=11.5 H=14.5 PLATELETS 441 x10^3 L=150 H=450 MPV 6.9 fL L=7.8 H=11.0 NEUTROPHILS 62.3 % L=40.0 H=80.0 LYMPHOCYTES 25.9 % L=20.0 H=45.0 MONOCYTES 10.7 % L=0.0 H=10.0 EOSINOPHILS 0.1 % L=0.0 H=5.0 BASOPHILS 1.0 % L=0.0 H=2.0 REFLEX MAN DIFF NO N/A BLEEDING TIME - Collect Date/Time: 09/15/2015 08:24 Test Name Code Test Result Test Units Test Ref Range BLEEDING TIME 3 Min 30 Sec N/A NORMAL: 1-7 MIN. PT/INR - Collect Date/Time: 09/15/2015 08:22 Test Name Code Test Result Test Units Test Ref Range PT 10.6 Secs L=9.2 H=10.8 INR 1.06 L=0.00 H=4.00 PTT - Collect Date/Time: 09/15/2015 08:22 Test Name Code Test Result Test Units Test Ref Range PTT 25.2 Secs L=22.0 H=30.0 Active Medications Unknown or Not Available. Medications Administered During Visit Unknown or Not Available. Encounters Encounter Diagnosis Diagnosis Code Start Date Encounter for other preprocedural [id number] 09/15/2015 examination Social History Smoking Status Code Start Date End Date Never smoker [id number] Patient Decision Aids Unknown or Not Available. Discharge Instructions You were admitted to [facility] on 08/2015 with a principal diagnosis of Encounter for other preprocedural examination. You were discharged from [facility] [place] on 09/15/2015. Should you have any questions prior to [...]
--- OUTSIDE RECORDS SUMMARY | 2018-01-27 07:54 | External Medical Summary | CCD ---
:1950 Author Name CHARLIE ALVARENGA Address [address], [place] [id number] Care Team Providers Name Role Phone EVON FAUSTIN Attending Physician Unavailable Vital Signs Unknown or Not Available. Allergies Allergy Code Allergy Type Reaction Status OXYCONTIN 061463 Drug allergy Active LATEX 0 Allergy to Active substance TRAZODONE 35989 Drug allergy Active NIFEDIPINE 7417 Drug allergy Active LORTAB 528932 Drug allergy Active DILAUDID 239556 Drug allergy Active LOSARTAN 7417 Drug allergy Active PENICILLIN 76711 Drug allergy Active LISINOPRIL 7417 Drug allergy Active OXYCODONE 7804 Drug allergy Active Procedures Unknown or Not Available. History of Immunizations Immunization Code Date influenza, unspecified formulation 88 06/14/2012 tetanus toxoid, unspecified 112 08/14/2009 formulation Problems Unknown or Not Available. Results BASIC METABOLIC - Collect Date/Time: 12/08/2015 09:20 Test Name Code Test Result Test Units Test Ref Range GLUCOSE 126 mg/dL L=70 H=110 BUN 29 mg/dL L=7 H=18 CREATININE 1.96 mg/dL L=0.60 H=1.30 AGE 64 YEARS GFR 34.8 SODIUM 140 mmol/L L=136 H=145 POTASSIUM 3.7 mmol/L L=3.5 H=5.1 CHLORIDE 106 mmol/L L=98 H=107 CO2 26 mmol/L L=21 H=32 CALCIUM 9.0 mg/dL L=8.5 H=10.1 Active Medications Unknown or Not Available. Medications Administered During Visit Unknown or Not Available. Encounters Encounter Diagnosis Diagnosis Code Start Date Chronic kidney disease, N189 12/08/2015 unspecified Social History Smoking Status Code Start Date End Date Never smoker [id number] Patient Decision Aids Unknown or Not Available. Discharge Instructions You were admitted to [facility] on 12/08/2015 09:15 with a principal diagnosis of Chronic kidney disease, unspecified You had the following tests done: BASIC METABOLIC You were discharged from [facility] on 12/08/2015 09:15 Should you have any questions prior to [...]
--- OUTSIDE RECORDS SUMMARY | 2018-01-27 07:54 | External Medical Summary | Summary of Care ---
:1950 Author Name Juan Miguel Martin M.D. Address [address] [place] [address] [place] [address] Care Team Providers Name Role Phone Juan [...] DAILY. Refills: 0 Start : 26-Aug-2015 Active HydroCHLOROthiazide 25 MG Oral Tablet TAKE 1/2 TABLET DAILY. Refills: 0 Juan Miguel Martin M.D. Start : 09-Mar-2017 Active Potassium Citrate ER 10 MEQ (1080 MG) Oral Tablet Extended Release TAKE 1 TABLET TWICE DAILY. Quantity: 180 Refills: 3 Juan Miguel Martin M.D. Start : 12-Dec-2015 Active Fluticasone Propionate 50 MCG/ACT Nasal Suspension USE 1 SPRAY IN EACH NOSTRIL ONCE DAILY. Refills: 0 Start : 10-Mar-2016 Active AmLODIPine Besylate 10 MG Oral Tablet TAKE 1 TABLET DAILY. Refills: 0 Juan Miguel Martin M.D. Start : 10-Mar-2016 Active Omeprazole 20 MG Oral Capsule Delayed Release TAKE 1 CAPSULE DAILY. Refills: 0 Start : 10-Mar-2016 Active Tradjenta 5 MG Oral Tablet TAKE 1 TABLET DAILY. Refills: 0 Start : 10-Mar-2016 Active Fenofibrate 160 MG Oral Tablet TAKE 1 TABLET DAILY. Refills: 0 Start : 10-Mar-2016 Active Aspirin 325 MG Oral Tablet TAKE 1 TABLET DAILY. Refills: 0 Start : 10-Mar-2016 Active ZyrTEC Allergy 10 MG Oral Tablet TAKE 1 TABLET AT BEDTIME. Refills: 0 Mario M.DJuan Miguel Grande Start : 10-Mar-2016 Active Labetalol HCl - 200 MG Oral Tablet TAKE 1 TABLET TWICE DAILY. Refills: 0 Cho M.D., Juan Miguel Start : 10-Mar-2016 Active Allergies and Adverse Reactions Name Dates [...] Status: Resolved History of right flank pain (V1, Z87.898) Status: Resolved Procedures Procedure Dates Details History of Renal Lithotripsy Completed History of Transurethral Resection Of Prostate (TURP) Completed History of Hernia Repair Completed History of Neuroplasty Decompression Median Nerve At Carpal Tunnel Completed History of Septoplasty Completed History of Arterial Catheterization Completed History of Intraoperative Transluminal Angioplasty Renal Artery Completed Immunization Name Dates Details Immunizations not documented [...] smoker Vital Signs Date Test Result Details [id number] BP Systolic 116 mm[Hg] Status: Comments: Location: Wrist Cuff; Position: Sitting BP Diastolic 65 mm[Hg] Status: Comments: Location: Wrist Cuff; Position: Sitting Heart Rate 65 /min Status: Comments: Location: R Radial; Respiration Rate 16 /min Status: Results Date Description Value Details [id number] PSA ( PROSTATE SPECIFIC ANTIGEN) 3100 PROSTATE SPECIFIC ANTIGEN 0.510 ng/mL Range: 0.000-4.000 [id number] Testosterone 3102 TST 608 ng/dL Range: 241-814 Plan of Care Name Dates Details Planned Observations Planned Goals not documented Planned Encounters Appointment; Juan Miguel Martin M.D. On: 08-Mar-2018 10:45 Instructions Name Dates Details Instructions not documented Encounters Appointment; Juan Miguel Martin M.D. On: 10-Mar-2016 10:30 Encounter Diagnosis: Problem not documented Appointment; Juan Miguel Martin M.D. On: 09-Mar-2017 10:30 Encounter Diagnosis: Problem not documented
--- OUTSIDE RECORDS SUMMARY | 2018-01-27 07:54 | External Medical Summary | CCD ---
:1950 Author Name CHARLIE ALVARENGA Address [address], [place] [id number] Care Team Providers Name Role Phone DANIEL LAU Attending Physician Unavailable EVON FAUSTIN (Secondary) Physician Unavailable Vital Signs Unknown or Not Available. Allergies Allergy Code Allergy Type Reaction Status OXYCONTIN 727279 Drug allergy Active LATEX 0 Allergy to Active substance TRAZODONE 52575 Drug allergy Active NIFEDIPINE 7417 Drug allergy Active LORTAB 589762 Drug allergy Active DILAUDID 731197 Drug allergy Active LOSARTAN 7417 Drug allergy Active PENICILLIN 74321 Drug allergy Active LISINOPRIL 7417 Drug allergy [...] Prot,24hr calculated 2889-4 100.0 30.0-150.0 [place] [address]-6 28.7 % NOT ESTAB. [place] [address]-7 0.8 % NOT ESTAB. Xjhen-1[place]cyqtf[place] [address]-8 10.3 % [place] [address]-5 31.6 % [place]. [place] [address]-5 28.5 % NOT ESTAB. TOTAL VOLUME: 2500 N/A M-Drake, % 99474-7 Not Observed N/A Not Observed M-Drake, mg/24 hr 72185-3 CORPORATE RECEPTIONIST N/A PROTEIN ELECTROPHORESIS, SERUM - Collect Date/Time: 11/05/2015 08:30 Test Name Code Test Result Test Units Test Ref Range Protein, Total, 2885-2 7.3 g/dL 6.0-8.5 Serum Albumin 2862-1 4.1 g/dL 3.2-5.6 Pesym-4-Truievha 2865-4 0.2 g/dL 0.1-0.4 Vdfkj-0-Rcbicpmg 2868-8 0.7 g/dL 0.4-1.2 Beta Globulin 2871-2 1.3 g/dL 0.6-1.3 Gamma Globulin 2874-6 1.0 g/dL 0.5-1.6 Globulin, Total 98531-1 3.2 g/dL 2.0-4.5 A/G Ratio 1759-0 1.3 0.7-2.0 M-Drake 59896-5 Not Observed N/A Not Observed PTH, INTACT - Collect Date/Time: 11/05/2015 08:30 Test Name Code Test Result Test Units Test Ref Range PTH, Intact 2731-8 14 pg/mL 15-65 Active Medications Unknown or Not Available. Medications Administered During Visit Unknown or Not Available. Encounters Encounter Diagnosis Diagnosis Code Start Date Chronic kidney disease, stage N183 11/05/2015 3 (moderate) Social History Smoking Status Code Start Date End Date Never smoker [id number] Patient Decision Aids Unknown or Not Available. Discharge Instructions You were admitted to [facility] on 11/05/2015 08:23 with a principal diagnosis of Chronic kidney disease, stage 3 (moderate) You had the following tests done: CBC (HEMOGRAM ONLY) PROTEIN ELECTROPHORESIS, 24-HR URINE PROTEIN ELECTROPHORESIS, SERUM PTH, INTACT RENAL FUNCTION PANEL You were discharged from [facility] on 11/13/2015 23:59 Should you have any [...]
--- OUTSIDE RECORDS SUMMARY | 2018-01-27 07:54 | External Medical Summary | CCD ---
:1950 Author Name ESTUARDO QUESADA Address [address] [place], [place] [id number] Care Team Providers Name Role Phone KASHIF DENG Attending Physician Unavailable Vital Signs Unknown or Not Available. Allergies Allergy Code Allergy Type Reaction Status OXYCONTIN 226503 Drug allergy Active LATEX 0 Allergy to Active substance TRAZODONE 34345 Drug allergy Active LORTAB 184154 Drug allergy Active DILAUDID 413235 Drug allergy Active PENICILLIN 72704 Drug allergy Active OXYCODONE 7804 Drug allergy Active Procedures Unknown or Not Available. History of Immunizations Immunization Code Date influenza, unspecified formulation 88 06/14/2012 tetanus toxoid, unspecified 112 08/14/2009 formulation Problems Unknown or Not Available. Results COMP METABOLIC - Collect Date/Time: 01/23/2015 15:03 Test Name Code Test Result Test Units Test Ref Range GLUCOSE 107 mg/dL L=70 H=110 BUN 26 mg/dL L=7 H=18 CREATININE 1.50 mg/dL L=0.60 H=1.30 AGE 64 YEARS GFR 50.4 SODIUM 142 mmol/L L=136 H=145 POTASSIUM 3.3 mmol/L L=3.5 H=5.1 CHLORIDE 103 mmol/L L=98 H=107 CO2 28 mmol/L L=21 H=32 CALCIUM 9.4 mg/dL L=8.5 H=10.1 AST 30 U/L L=15 H=37 ALT 39 U/L L=12 H=78 ALKALINE PHOS 73 U/L L=46 H=116 TOTAL PROTEIN 8.1 g/dL L=6.4 H=8.2 ALBUMIN 4.5 g/dL L=3.4 H=5.0 TOTAL BILI 0.50 mg/dL L=0.00 H=1.00 HGB A1C - Collect Date/Time: 01/23/2015 15:03 Test Name Code Test Result Test Units Test Ref Range HGB A1C 6.6 % L=4.5 H=6.2 eAG 143 mg/dL LIPID PANEL - Collect Date/Time: 01/23/2015 15:03 Test Name Code Test Result Test Units Test Ref Range CHOLESTEROL 124 mg/dL L=0 H=200 TRIGLYCERIDES 378 mg/dL L=30 H=150 HDL 32 mg/dL L=40 H=60 LDL, CALC 16 mg/dL L=0 H=100 VLDL 76 mg/dL L=0 H=40 CHOL/HDL RISK 3.9 RATIO L=0.0 H=5.0 PT FASTING: ? N/A Active Medications Unknown or Not Available. Medications Administered During Visit Unknown or Not Available. Encounters Encounter Diagnosis Diagnosis Code Start Date HYPERTENSION NOS 4019 01/23/2015 Social History Smoking Status Code Start Date End Date Never smoker [id number] Patient Decision Aids Unknown or Not Available. Discharge Instructions You were admitted to [facility] on 06/2015 with a principal diagnosis of HYPERTENSION NOS. You were discharged from [facility] on 01/23/2015. Should you have any questions prior to [...]
--- OUTSIDE RECORDS SUMMARY | 2018-01-27 07:54 | External Medical Summary | Summary of Care ---
:1950 Author Name Juan Miguel Martin M.D. Address [address] [place] [address] [place] [address] Care Team Providers Name Role Phone Juan [...] History of Intraoperative Transluminal Angioplasty Renal Artery Procedures not documented Immunization Name Dates Details Immunizations not documented [...] Provider: Juan Miguel Martin M.D. On 10:30 Instructions Name Dates Details Instructions not documented Encounters Appointment; Juan Miguel Martin M.D. On Encounter Diagnosis: Problem not documented 10:30
--- OUTSIDE RECORDS SUMMARY | 2018-01-27 07:54 | External Medical Summary | CCD ---
:1950 Author Name CHARLIE ALVARENGA Address [address] [place], [place] [phone] Care Team Providers Name Role Phone EVON FAUSTIN Attending Physician Unavailable Vital Signs Unknown or Not Available. Allergies Allergy Code Allergy Type Reaction Status OXYCONTIN 121212 Drug allergy Active LATEX 0 Allergy to Active substance TRAZODONE 95028 Drug allergy Active NIFEDIPINE 7417 Drug allergy Active LORTAB 042532 Drug allergy Active DILAUDID 721743 Drug allergy Active LOSARTAN 7417 Drug allergy Active PENICILLIN 66022 Drug allergy Active LISINOPRIL 7417 Drug allergy Active OXYCODONE 7804 Drug allergy Active Procedures Unknown or Not Available. History of Immunizations Immunization Code Date influenza, unspecified formulation 88 06/14/2012 tetanus toxoid, unspecified 112 08/14/2009 formulation Problems Unknown or Not Available. Results BASIC METABOLIC - Collect Date/Time: 12/30/2015 13:00 Test Name Code Test Result Test Units Test Ref Range GLUCOSE 94 mg/dL L=70 H=110 BUN 20 mg/dL L=7 H=18 CREATININE 1.75 mg/dL L=0.60 H=1.30 AGE 64 YEARS GFR 39.7 SODIUM 138 mmol/L L=136 H=145 POTASSIUM 4.0 mmol/L L=3.5 H=5.1 CHLORIDE 103 mmol/L L=98 H=107 CO2 26 mmol/L L=21 H=32 CALCIUM 9.4 mg/dL L=8.5 H=10.1 HGB A1C - Collect Date/Time: 12/30/2015 13:00 Test Name Code Test Result Test Units Test Ref Range HGB A1C 5.7 % L=4.5 H=6.2 eAG 117 mg/dL LIPID PANEL - Collect Date/Time: 12/30/2015 13:00 Test Name Code Test Result Test Units Test Ref Range CHOLESTEROL 160 mg/dL L=0 H=200 TRIGLYCERIDES 379 mg/dL L=30 H=150 HDL 30 mg/dL L=40 H=60 LDL, CALC 54 mg/dL L=0 H=100 VLDL 76 mg/dL L=0 H=40 CHOL/HDL RISK 5.3 RATIO L=0.0 H=5.0 PT FASTING: ? N/A Active Medications Unknown or Not Available. Medications Administered During Visit Unknown or Not Available. Encounters Unknown or Not Available. Social History Smoking Status Code Start Date End Date Never smoker [id number] Patient Decision Aids Unknown or Not Available. Discharge Instructions You were admitted to [facility] on 12/30/2015 12:52 You had the following tests done: BASIC METABOLIC HGB A1C LIPID PANEL You were discharged from [facility] on 12/30/2015 12:52 Should you have any questions prior to [...]
--- OUTSIDE RECORDS SUMMARY | 2018-01-27 07:54 | External Medical Summary | Summary of Care ---
:1950 Author Name Juan Miguel Martin M.D. Address [address] [place] [address] [place] [address] Care Team Providers Name Role Phone Juan [...] m2 Status: Results Date Description Value Details 14:48 PSA ( PROSTATE SPECIFIC ANTIGEN) 3100 PROSTATE SPECIFIC ANTIGEN 0.540 ng/mL Range: 0.000-4.000 Plan of Care Name Dates Details Planned Observations Planned Goals not documented Planned Encounters Appointment; Provider: Juan Miguel Martin M.D. On 10:30 Instructions Name Dates Details Instructions not documented Encounters Appointment; Juan Miguel Martin M.D. On Encounter Diagnosis: Problem not documented 10:30
--- OUTSIDE RECORDS SUMMARY | 2018-01-27 07:54 | External Medical Summary | CCD ---
:1950 Author Name QUESADAESTUARDO Sarai Address [address] [place], [place] [phone] Care Team Providers Name Role Phone KASHIF DENG Attending Physician Unavailable Vital Signs Unknown or Not Available. Allergies Allergy Code Allergy Type Reaction Status OXYCONTIN 251893 Drug allergy Active LATEX 0 Allergy to Active substance TRAZODONE 02196 Drug allergy Active LORTAB 881522 Drug allergy Active DILAUDID 782044 Drug allergy Active PENICILLIN 21656 Drug allergy Active OXYCODONE 7804 Drug allergy Active Procedures Unknown or Not Available. History of Immunizations Immunization Code Date influenza, unspecified formulation 88 06/14/2012 tetanus toxoid, unspecified 112 08/14/2009 formulation Problems Unknown or Not Available. Results COMP METABOLIC - Collect Date/Time: 03/28/2015 11:45 Test Name Code Test Result Test Units Test Ref Range GLUCOSE 100 mg/dL L=70 H=110 BUN 19 mg/dL L=7 H=18 CREATININE 1.70 mg/dL L=0.60 H=1.30 AGE 64 YEARS GFR 43.6 SODIUM 138 mmol/L L=136 H=145 POTASSIUM 3.9 mmol/L L=3.5 H=5.1 CHLORIDE 103 mmol/L L=98 H=107 CO2 27 mmol/L L=21 H=32 CALCIUM 9.5 mg/dL L=8.5 H=10.1 AST 89 U/L L=15 H=37 ALT 177 U/L L=12 H=78 ALKALINE PHOS 107 U/L L=46 H=116 TOTAL PROTEIN 8.0 g/dL L=6.4 H=8.2 ALBUMIN 4.4 g/dL L=3.4 H=5.0 TOTAL BILI 0.40 mg/dL L=0.00 H=1.00 Active Medications Unknown or Not Available. Medications Administered During Visit Unknown or Not Available. Encounters Encounter Diagnosis Diagnosis Code Start Date HYPOPOTASSEMIA 2768 03/28/2015 Social History Smoking Status Code Start Date End Date Never smoker [id number] Patient Decision Aids Unknown or Not Available. Discharge Instructions You were admitted to [facility] on with a principal diagnosis of HYPOPOTASSEMIA. You were discharged from [facility] on 03/28/2015. Should you have any questions prior to [...]
--- OUTSIDE RECORDS SUMMARY | 2018-01-27 07:54 | External Medical Summary | Continuity of Care Document ---
:1950 Author Organization [facility] Allergies Active Description Code Type Severity Reaction Onset Reported/ Identified Relationship Clinical to Patient Status Yes DILAUDID 01016 Drug Moderate N/A 903 Aller gy Yes LATEX 53873 Envir Moderate N/A 463 onmen deneen Aller gy Yes LISINOPRIL 18932 Drug Moderate N/A 945 Aller gy Yes LORTAB 00260 Drug Moderate N/A 731 Aller gy Yes LOSARTAN 20677 Drug Moderate N/A 621 Aller gy Yes NIFEDIPINE 22367 Drug Moderate N/A 662 Aller gy Yes OXYCODONE 38505 Drug Moderate N/A 741 Aller gy Yes OXYCONTIN 35836 Drug Moderate N/A 943 Aller gy Yes PENICILLINS 92135 Drug Moderate N/A (CLASS) 193 Aller gy Yes TRAZODONE 86727 Drug Moderate N/A 694 Aller gy Yes Hydromorphon F0060 Drug Moderate Hives 03/29/2014 e 06997 Aller gy Yes PCN PCN Unknown N/A 03/29/2014 Yes HYDROmorphon NKMA N/A N/A 04/11/2017 e Yes penicillin NKMA N/A N/A 04/11/2017 Medications Medication Packaging Start Date Stop Date Route Dosage Sig Tablet 08/26/2015 Tablet 30 Allopurinol 300 MG TAKE 1 Oral Tablet TABLET DAILY. caps 04/11/2017 Oral mg tamsulosin(tamsulo mg=caps, sin 0.4 mg oral Oral, capsule) Daily, 0 Refill(s) tabs 04/11/2017 Oral mg traMADol(traMADol mg=tabs, 50 mg oral tablet) Oral, q4hr, 0 Refill(s) tabs 04/11/2017 Oral mg fenofibrate(TriCor mg=tabs, 145 mg oral Oral, tablet) Daily, 0 Refill(s) caps 04/11/2017 Oral mg ranitidine(raNITId mg=caps, ine 150 mg oral Oral, BID, capsule) 0 Refill(s) tabs 04/11/2017 Oral mg NIFEdipine(NIFEdip mg=tabs, ine 90 mg oral Oral, tablet, extended Daily, 0 release) Refill(s) 1 tabs 04/11/2017 Oral 5 mg linagliptin(Tradje 5 mg=1 nta 5 mg oral tabs, tablet) Oral, Daily, 30 tabs, 0 Refill(s) tabs 04/11/2017 Oral mg labetalol(labetalo mg=tabs, l 300 mg oral Oral, BID, tablet) 0 Refill(s) lavinia 04/11/2017 Topical triamcinolone lavinia, topical(triamcinol Topical, one 0.1% TID, 0 topical cream) Refill(s) tabs 04/11/2017 Oral mg atorvastatin(atorv mg=tabs, astatin 20 mg oral Oral, tablet) Daily, 0 Refill(s) tabs 04/11/2017 Oral mg sertraline(sertral mg=tabs, ine 100 mg oral Oral, tablet) Daily, 0 Refill(s) tabs 04/11/2017 Oral mEq potassium mEq=tabs, citrate(potassium Oral, TID, citrate 10 mEq 0 oral tablet, Refill(s) extended release) 04/11/2017 Inhalation fluticasone(flutic Inhalatio asone 50 mcg n, BID, 0 inhalation powder) Refill(s) 04/11/2017 cetirizine(cetiriz Daily, 0 ine) Refill(s) tabs 04/11/2017 Oral mg allopurinol(allopu mg=tabs, rinol 300 mg oral Oral, tablet) Daily, 0 Refill(s) tabs 04/11/2017 Oral mg ondansetron(Zofran mg=tabs, 4 mg oral tablet) Oral, q8hr, 0 Refill(s) Problems Date Dx Attending Type Code Diagnosis Diagnosed By Coded 03/29/2014 Joe Salazar Ot 723.0 CERVICAL SPINAL STENOSIS 03/29/2014 Joe Salazar Ot 723.1 CERVICALGIA 04/05/2014 Ot 723.8 CERVICAL SYNDROME NEC 07/24/2014 MARINA Ot 723.0 CERVICAL SPINAL ROB BALTAZAR STENOSIS 09/20/2014 MARINA Ot 339.12 CHRONIC TENSION TYPE ROB BALTAZAR HEADACHE 09/20/2014 MARINA Ot 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 11/07/2014 Ot 338.29 11/07/2014 Ot 339.12 11/07/2014 Ot 723.1 11/07/2014 Ot 724.2 11/21/2014 Ot 339.12 11/21/2014 Ot 346.70 12/04/2014 Joe Salazar Ot 722.4 12/04/2014 MARINA Ot 723.4 ROB BALTAZAR 12/04/2014 Ot 338.29 12/04/2014 Ot 339.12 12/04/2014 Ot 723.1 12/04/2014 Ot 724.2 12/04/2014 Ot 339.12 12/04/2014 Ot 346.70 08/07/2015 Working G47.33 Obstructive sleep Charles Burdick apnea (adult) O (pediatric) 01/01/2016 Working G47.33 Obstructive sleep Charles Burdick apnea (adult) O (pediatric) 03/10/2016 Juan Miguel Martin Working E83.50 Hypercalciuria Juan Miguel Martin 03/10/2016 Juan Miguel Martin Working N20.0 Bilateral kidney Juan Miguel Martin stones 03/10/2016 Juan Miguel Martin Working N40.1 Benign prostatic Juan Miguel Martin hyperplasia with lower urinary tract symptoms 03/10/2016 Juan Miguel Martin Working 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 Miguel Martin 03/10/2016 Juan Miguel Martin Working E83.50 Unspecified disorder Juan Miguel Martin of calcium metabolism 03/10/2016 Juan Miguel Martin Working N20.0 Calculus of kidney Mario, Juan Miguel 03/10/2016 Juan Miguel Martin Working R82.99 Other abnormal Juan Miguel Martin findings in urine 10/21/2016 Joe Salazar Ot 722.4 CERVICAL DISC DEGEN 10/21/2016 MARINA Ot 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 10/21/2016 Ot 338.29 OTHER CHRONIC PAIN 10/21/2016 Ot 339.12 CHRONIC TENSION TYPE HEADACHE 10/21/2016 Ot 723.1 CERVICALGIA 10/21/2016 Ot 724.2 LUMBAGO 10/21/2016 Ot 339.12 CHRONIC TENSION TYPE HEADACHE 10/21/2016 Ot 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 03/09/2017 Working N20.0 Calculus of kidney Cho, Juan Miguel 03/09/2017 Working N40.1 Benign prostatic Juan Miguel Martin hyperplasia with lower urinary tract symp 04/13/2017 Enrico BALTAZAR, Reason K21.9 Gastro-esophageal Bradley D reflux disease without esophagitis 04/13/2017 Enrico BALTAZAR, Final 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 04/13/2017 Enrico BALTAZAR, Final 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.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 10/05/2017 P D649 Anemia, unspecified 10/05/2017 S E119 Type 2 diabetes mellitus without complications 10/05/2017 S M791 Myalgia 10/05/2017 S N189 Chronic kidney disease, unspecified 10/05/2017 S R5383 Other fatigue 11/21/2017 DANIEL LAU I129 Hypertensive chronic kidney disease with stage 1 through stage 4 chronic kidney disease, or unspecified chronic kidney disease 11/21/2017 DANIEL LAU P N183 Chronic kidney disease, stage 3 (moderate) 11/21/2017 DANIEL LAU N200 Calculus of kidney Procedures Code Description Performed By Performed On SPINAL CANAL 03/29/2014 INJECT NEC 99.23 INJECT 03/29/2014 STEROID 04.81 ANESTH INJEC 04/05/2014 PERIPH NERV 04.89 PERIPH NERVE 04/05/2014 INJECT NEC 99.23 INJECT 04/05/2014 STEROID 99.29 04/05/2014 INJECT/INFUSE NEC 03.92 SPINAL CANAL 04/17/2014 INJECT NEC 99.23 INJECT 04/17/2014 STEROID 04.81 ANESTH INJEC 09/20/2014 PERIPH NERV 04.89 PERIPH NERVE 09/20/2014 INJECT NEC 99.23 INJECT 09/20/2014 STEROID 83.98 SOFT TISSUE 10/21/2014 INJECT NEC 83.98 SOFT TISSUE 11/01/2014 INJECT NEC 52010 Charles Burdick 08/11/2015 Polysomnography;sleep Staging [place] 4[place] 28878 Charles Burdick 01/01/2016 Polysomnography;sleep Staging W 4ey 06163 Juan Miguel Martin 03/11/2016 Urinalysis,Complete [id number] Juan Miguel Martin 03/10/2017 Urinalysis,Chemistries Results Test Result Range PSA ( PROSTATE SPECIFIC ANTIGEN) 3100 - 03/15/16 09:21 PROSTATE SPECIFIC ANTIGEN 0.540 0.000-4.000 PSA ( PROSTATE SPECIFIC ANTIGEN) 3099 - 03/13/17 18:04 PROSTATE SPECIFIC ANTIGEN 0.510 ng/mL 0.000-4.000 Testosterone 3101 - 03/13/17 18:04 TST 608 ng/dL 241-814 BASIC METABOLIC - 11/21/17 15:43 BASIC METABOLIC LAB NRG GLUCOSE 128 mg/dL 70 - 110 BUN 31 mg/dL 7 - 18 CREATININE 2.00 mg/dL 0.60 - 1.30 AGE 66 YEARS NRG GFR 33.8 60.0 - 120 SODIUM 141 mmol/L 136 - 145 POTASSIUM 3.5 mmol/L 3.5 - 5.1 CHLORIDE 103 mmol/L 98 - 107 CO2 26 mmol/L 21 - 32 CALCIUM 9.8 mg/dL 8.5 - 10.1 CBC W/ DIFF - 01/27/18 02:30 CBC W/ DIFF LAB NRG WBC 10.2 x10^3 4.8 - 10.8 RBC 4.51 x10^6 4.70 - 6.10 HEMOGLOBIN 14.5 g/dL 14.0 - 18.0 HEMATOCRIT 41.0 % 42.0 - 52.0 MCV 91 fL 80 - 100 MCH 32.2 pg 27.0 - 33.0 MCHC 35.4 g/dL 33.0 - 37.0 RDW 13.1 % 11.5 - 14.5 PLATELETS 418 x10^3 150 - 450 MPV 8.8 fL 7.8 - 11.0 NEUTROPHILS 61.1 % 40.0 - 80.0 LYMPHOCYTES 26.7 % 20.0 - 45.0 MONOCYTES 10.8 % 0.0 - 10.0 EOSINOPHILS 0.0 % 0.0 - 5.0 BASOPHILS 1.0 % 0.0 - 2.0 IMMATURE GRAN 0.4 % 0.0 - 2.0 NUCLEATED RBC'S 0.0 % 0.0 - 1.0 REFLEX MAN DIFF NO NRG COMP METABOLIC - 01/27/18 02:30 COMP METABOLIC LAB NRG GLUCOSE 128 mg/dL 70 - 110 BUN 26 mg/dL 7 18 CREATININE 2.24 mg/dL 0.60 - 1.30 AGE 67 YEARS NRG GFR 29.6 60.0 - 120 SODIUM 140 mmol/L 136 - 145 POTASSIUM 3.9 mmol/L 3.5 - 5.1 CHLORIDE 103 mmol/L 98 - 107 CO2 24 mmol/L 21 - 32 CALCIUM 9.4 mg/dL 8.5 - 10.1 AST 31 U/L 15 - 37 ALT 45 U/L 14 - 63 ALKALINE PHOS 80 U/L 46 - 116 TOTAL PROTEIN 7.7 g/dL 6.4 - 8.2 ALBUMIN 4.5 g/dL 3.4 - 5.0 TOTAL BILI 0.20 mg/dL 0.00 - 1.00 LIPASE - 01/27/18 02:30 LIPASE 67820 U/L 73 - 393 SED RATE AUTO - 01/27/18 02:30 SED RATE 1 mm/HR 0 - 10 C-REACTIVE PROTEIN - 01/27/18 02:30 CRP <2 mg/L 0 - 5 LDH - 01/27/18 02:30 LDH 176 U/L 81 - 234 AMYLASE - 01/27/18 02:30 AMYLASE 2148 U/L 25 - 115 UA AUTO W/ MICRO - 01/27/18 05:08 UA AUTO W/ MICRO LAB NRG SPEC SOURCE: CLEAN CATCH NRG COLOR Yellow NORMAL: Yellow APPEARANCE Clear NORMAL: Clear GLUCOSE Negative NORMAL: Negative BILIRUBIN Negative NORMAL: Negative KETONE Negative NORMAL: Negative SPEC GRAVITY 1.020 NORMAL: 1.005-1.030 BLOOD Negative NORMAL: Negative PROTEIN Negative NORMAL: Negative PH 7.0 NORMAL: 5.0-8.0 UROBILINOGEN 0.2 NORMAL: 0.2-1.0 NITRITE Negative NORMAL: Negative LEUKOCYTES Negative NORMAL: Negative MICRO RBC None Seen NORMAL: 0-2 MICRO WBC 0-2 NORMAL: 0-2 BACTERIA None Seen NORMAL: None-Trace EPI CELLS None Seen NORMAL: 0-15 MUCUS None Seen NORMAL: None-Small AMORPHOUS None Seen NORMAL: None Seen YEAST None Seen NORMAL: None Seen CRYSTALS None Seen NORMAL: None Seen CAST Hyaline C NORMAL: None Seen URINE CULTURE? NO NRG Encounters ACCT No. Visit Discharge Status Pt. Type Provider Facility Loc./Unit Complaint Date/Time [id number] 09/20/2014 09/20/2014 DIS Outpatien FREDY Spence PMC CERVICAL 556 11:12:00 11:37:00 chidi MOSQUERA MD, [facility] ROB Melissa [id number] 07/24/2014 07/24/2014 DIS Outpatien PAPITO-D Jordy PMC CERVICAL 496 11:06:00 11:33:00 chidi MOSQUERA MD, [facility] JOSEFA ROB E [id number] 05/15/2014 05/15/2014 CLS Outpatien PAPITO-D Jordy PMC CERVICAL 960 08:21:00 23:59:59 chidi MOSQUERA MD, [facility] E [id number] 04/17/2014 04/17/2014 CLS Outpatien Marie Jordy PMC JOSEFA 603 16:12:00 23:59:59 t [facility] [id number] 03/29/2014 03/29/2014 DIS Outpatien Marie Spence PMC 570 09:58:00 10:47:00 [facility] [id number] 11/04/2014 Document 021 11:25:00 Registrat ion [id number] 10/21/2014 Document 903 12:21:00 Registrat ion [id number] 04/05/2014 Document 992 12:27:00 Registrat ion [id number] 11/03/2017 11/03/2017 DIS Outpatien 12:55:46 12:55:46 t [id number] 09/22/2014 ACT Document 00:26:02 Registrat ion [id number] 04/11/2017 04/11/2017 DIS Outpatien F[place]ch [facility] SPS GERD - 419 09:58:00 11:47:00 t , [facility] 24 hour [id number] 04/12/2017 Document [id number] 05:16:47 Registrat ion [id number] 04/15/2017 Document 08:36:11 Registrat ion [id number] 03/13/2017 Document 18:04:22 Registrat ion [id number] 03/02/2017 Document 06:14:50 Registrat ion [id number] 03/15/2016 Document 09:21:43 Registrat ion [id number] 03/12/2016 ACT Outpatien Nancie Mratin 115 18:12:09 t [facility] [id number] 01/01/2016 Document 17:47:44 Registrat ion [id number] 08/11/2015 Document 13:30:35 Registrat ion [id number] 11/25/2014 11/25/2014 CLS Outpatien [id number] 14:12:16 23:59:59 t 1216 [id number] 11/25/2014 11/25/2014 DIS Outpatien [id number] 14:15:22 14:15:22 t 1522 [id number] 11/25/2014 11/25/2014 DIS Outpatien [id number] 14:12:14 14:12:14 t 1214 [id number] 06/19/2014 06/19/2014 CLS Outpatien [id number] 14:20:20 23:59:59 t 2020 [id number] 11/21/2017 11/21/2017 CLS Outpatien RONEN LAU 15:39:00 23:59:59 t DANIEL Gallagher [id number] 01/27/2018 Document 02:26:47 Registrat ion [id number] 10/05/2017 Document 09:39:00 Registrat ion [id number] 08/27/2016 ACT Unknown [id number] 09:38:00 [id number] 06/21/2016 ACT Unknown [id number] 14:43:00 [id number] 06/21/2016 ACT Unknown [id number] 14:16:00 [id number] 02/24/2016 ACT Unknown [id number] 07:51:00 [id number] 02/09/2016 ACT Unknown [id number] 12:53:00 [id number] 01/21/2016 ACT Unknown [id number] 08:35:00 [id number] 01/08/2016 ACT Unknown [id number] 07:36:00 [id number] 01/01/2016 ACT Unknown [id number] 10:27:00 [id number] 11/24/2015 ACT Unknown [id number] 13:52:00 [id number] 11/19/2015 ACT Unknown [id number] 11:35:00 [id number] 10/03/2015 ACT Unknown [id number] 09:50:00 [id number] 09/04/2015 ACT Unknown [id number] 17:47:00 [id number] 04/08/2014 ACT Unknown [id number] 10:37:00 [id number] 03/22/2014 ACT Unknown [id number] 10:47:00 [id number] 12/19/2013 ACT Unknown [id number] 09:35:00 [id number] 12/17/2013 ACT Unknown [id number] 08:16:00 [id number] 12/06/2013 ACT Unknown [id number] 13:30:00 [id number] 06/06/2013 ACT Unknown [id number] 13:33:00
[2018-01-27] MEDS: LR 1,000 ML IV SCH ×3 (09:15→18:37)
[2018-01-27] MEDS ORDERED: MORPHINE SULFATE 4mg INJECTION IVP PRN (09:18)
--- NOTE | 2018-01-27 09:26 | History & Physical Report ---
History of Present Illness Date: 01/27/18 Chief complaint: abdominal pain HPI: Patient is a 67 yo male who sees Dr. Flor for primary care. He presented to [facility] ER at 230 am due to severe abdominal pain which woke him up at 2am. He had CT [place] [address], with nl liver function. He has CKD Stage 3 and may have ABHISHEK given his creatinine of 2.24 and GFR of 29.6 on current lab. He has h/o pancreatitis 2 previous times, the most recent in 2014. He does not drink etoh and takes fenofibrate for hypertriglyceridemia. He had increasing pain by the time he arrived at ER rating it 9/10. He also developed vomiting secondary to the pain. He received morphine, fentanyl, zofran and reglan in ER and Fentanyl in route to our facility. At time of interview, rates his pain 7/10 and c/o nausea. He doesn't drink etoh . Had been feeling fine yesterday. Last ate a pecan priscila cookie late evening. Last nl BM yesterday morning. Review of Systems All systems PM: 10-point ROS was reviewed, no additional remarkable complaints except (R sided abd and flank pain and nausea) Past Medical History Medical History Updates: Kidney stones. CKD Stage III (Dr Fulton). Type 2 DM - diet controlled. HLD/Hypertriglyceridemia. GERD. BPH (s/p TUNA procedure). Allergies. HTN. Renal artery stenosis Surgical History: R inguinal hernia repair 2017. septoplasty for deviated septum. TUNA for BPH. B/l ureter dilation for kidney stones (Dr Hernandez). h/o ureteral stents. L renal balloon angioplasty (Dr Middleton 05/29). 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 Medications Home Medications Medication Instructions Recorded Confirmed Type Multivit with Iron-Minerals 1 tab PO DAILY #0 04/17/13 01/27/18 History Atorvastatin Calcium 20 mg PO HS #0 11/02/15 01/27/18 History Fluticasone Nasal [place] [Flonase] 2 spray NS HS #0 11/02/15 01/27/18 History LINAGLIPTIN 5mg [Tradjenta] 5 mg PO DAILY #0 11/02/15 01/27/18 History Labetalol HCl 450 mg PO BID #0 11/02/15 01/27/18 History Potassium Citrate [Potassium 20 meq PO BID #0 11/02/15 01/27/18 History Citrate ER] Acetaminophen [Acetaminophen Extra 1,000 mg PO Q4HPRN PRN 01/27/18 01/27/18 History Strength] Allopurinol [Zyloprim] 300 mg PO DAILY 01/27/18 01/27/18 History Aspirin *EC* [Ecotrin] 1 tab PO DAILY 01/27/18 01/27/18 History Buspirone HCl 10 mg PO BID 01/27/18 01/27/18 History Doxazosin [Cardura] 0.5 tab PO HS 01/27/18 01/27/18 History Fenofibrate Nanocrystallized 145 mg PO DAILY 01/27/18 01/27/18 History [Fenofibrate] HydroCHLOROthiazide [Hydrodiuril] 1 tab PO DAILY 01/27/18 01/27/18 History Loratadine [Claritin] 10 mg PO PRN 01/27/18 01/27/18 History NIFEdipine [Nifedipine ER] 90 mg PO DAILY 01/27/18 01/27/18 History Ranitidine [Zantac] 150 mg PO PRN 01/27/18 01/27/18 History Sertraline HCl [Zoloft] 200 mg PO DAILY 01/27/18 01/27/18 History Allergies Allergy/AdvReac Type Severity Reaction Status Date / Time latex Allergy Unknown RASH Verified 11/02/15 11:12 Penicillins Allergy Unknown RASH Verified 11/02/15 11:04 oxycodone AdvReac Intermediate HALLUCINATI Verified 11/02/15 11:04 ON lisinopril AdvReac Unknown Verified 11/02/15 11:04 losartan AdvReac Unknown Verified 11/02/15 11:04 nifedipine AdvReac Unknown SEVERE Verified 11/02/15 11:04 HEADACHES COBAN Allergy Unknown Uncoded 11/02/15 11:12 hydromorphone HCl Allergy Unknown ITCHING Uncoded 11/02/15 11:04 Exam Vital Signs: Temperature 96.8 F 01/27/18 07:52 Pulse Rate 62 01/27/18 08:45 Respiratory Rate 18 01/27/18 08:45 Pulse Oximetry 97 01/27/18 08:45 - Constitutional Present: moderate distress (in obvious pain), well nourished, well developed - Routine HEENT Exam Head: Present: normocephalic, atraumatic Eye: Present: EOMI, PERRL ENT: Present: mucous membranes moist, oropharynx clear - Routine Neck Exam Present: supple. Absent: lymphadenopathy - Routine Respiratory Exam Present: CTA bilaterally. Absent: wheezes - Routine Cardiovascular Exam Present: RRR, no murmur - Routine Abdominal Exam Present: soft, normoactive bowel sounds, tenderness (R flank, RUQ/LUQ). Absent : distended - Routine Extremities Exam Present: no edema, normal capillary refill - Routine Skin Exam Present: dry, warm - Routine Neurological Exam Present: alert, oriented X3, CN II-XII intact - Routine Psychiatric Exam Present: normal affect, cooperative Results - Labs CBC & Chem 7: 01/27/18 09:57 01/27/18 09:57 Assessment and Plan Assessment and Plan: Assessment Acute pancreatitis Leukocytosis Kidney stones ABHISHEK on CKD Stage III (Dr Fulton) Type 2 DM - diet controlled HLD/Hypertriglyceridemia GERD HTN Renal artery stenosis (s/p L balloon angioplasty 2014 - Dr Blackwell.) BPH (s/p TUNA procedure) Allergies Plan Admit to CCU, IP. Stay expected to exceed two midnights for IVF's and pain control for pancreatitis. CT reviewed from outside facility showing acute pancreatitis and nonobstructing renal stones CBC, CMP, UA. Labs reviewed from outside facility. NPO. Hold home meds. IVF's. Morphine IV for pain (doesn't tolerate Dilaudid), Zofran IV and/or promethazine 25 IM (pt preference) PRN nausea. Protonix 40mg IV for GI ppx and GERD. Accuchecks, SSI. SCD's for VTE ppx FULL CODE. Dr Flor - PCP. DVT Prophylaxis: SCD's GI Prophylaxis: Protonix Resuscitation Status: Full Code - Physician Narrative Physician: Benitez Toussaint MD Narrative: Date: 01/27/18 Time: 1800 Have independently interviewed and examined pt. Chart reviewed. Case discussed with my PA. Care plan developed with supervision; agree with above. Woke this morning with severe ab pain-notes pain to RUQ radiating to back. Very nauseated and had multiple episodes of emesis. No diarrhea. Not having ab problems in prior day, bowel have been stable. Did report eating sausage yesterday evening. Not feeling palpitations. No cough/congestion. With symptoms , presented to local ED for evaluation. Lipase elevated. CT showing pancreatitis. Admission recommended and patient wished to got to [facility] for care. Place in inpatient admission for treatment. Lung: decreased, no distress CV: regular AB: distended, BS decreased, Mild diffuse tenderness without rebound. GEN: appears somnolent, but appropriate Plan: Inpatient admission for treatment of acute pancreatitis. NPO for bowel rest. GB US secondary to RUQ pain and pancreatitis. IVF to help maintain volume. Control pain and nausea. SCD for DVT prevention. Monitor lab. Full code per his requests. Care to return to Dr Flor at time of discharge from [facility]. Hospital Course Summary Disclaimer: The visit summary below is not to be considered part of the above Progress Note. Hospital Course: 01/27/18 Admit to CCU, IP. Stay expected to exceed two midnights for IVF's and pain control for pancreatitis. CT reviewed from outside facility showing acute pancreatitis and nonobstructing renal stones CBC, CMP, UA. Labs reviewed from outside facility. NPO. Hold home meds. IVF's. Morphine IV for pain (doesn't tolerate Dilaudid), Zofran IV and/or promethazine 25 IM (pt preference) PRN nausea. Protonix 40mg IV for GI ppx and GERD. Accuchecks, SSI. SCD's for VTE ppx FULL CODE. Dr Flor - PCP.
[2018-01-27] MEDS: PROMETHAZINE 25 MG INJECTION IM PRN ×3 (09:34→21:57)
[2018-01-27] MEDS: PANTOPRAZOLE 40 MG INJECTION IVP SCH (10:27)
[2018-01-27] MEDS: MORPHINE SULFATE 4mg INJECTION IVP PRN ×5 (11:46→21:52)
[2018-01-27] MEDS: ONDANSETRON 4 MG/2 ML INJECTION IVP PRN (11:50)
[2018-01-28] MEDS: MORPHINE SULFATE 4mg INJECTION IVP PRN ×8 (01:10→21:39)
[2018-01-28] MEDS: PROMETHAZINE 25 MG INJECTION IM PRN ×4 (03:35→17:35)
[2018-01-28] MEDS: LR 1,000 ML IV SCH ×2 (04:48→16:00)
[2018-01-28] MEDS: PANTOPRAZOLE 40 MG INJECTION IVP SCH (10:26)
[2018-01-28] MEDS: ONDANSETRON 4 MG/2 ML INJECTION IVP PRN ×2 (10:33→21:39)
[2018-01-28] MEDS: INSULIN ASPART 100unit/ml INJECTION SQ PRN (10:45)
--- NOTE | 2018-01-28 11:58 | Progress Note ---
- Date 01/28/18 Subjective: F/U: Acute pancreatitis About the same. Notes diffuse ab pain-medications help. Ab pain increasing with positional changes and movement. Passing scant gas. Continued nausea. No appetite. Not SOA, but hurt in ab with deep breath. Urine stable. Tired, but has been able to get some sleep. Objective Vital signs: Temperature 98.1 F 01/28/18 07:33 Pulse Rate 93 01/28/18 08:20 Respiratory Rate 26 H 01/28/18 10:26 Blood Pressure 155/74 H 01/28/18 08:00 Pulse Oximetry 94 01/28/18 08:00 Height/Weight/BMI: Height 1.75 m Weight 77.9 kg Body Mass Index 25.3 - Constitutional Present: well nourished, well developed, average body habitus, cooperative - Routine HEENT Exam Head: Present: normocephalic, atraumatic Eye: Present: EOMI, PERRL ENT: Present: mucous membranes moist - Routine Respiratory Exam Present: decreased breath sounds. Absent: rales, respiratory distress, wheezes , crackles - Routine Cardiovascular Exam Present: RRR, no murmur - Routine Abdominal Exam Present: tenderness (Diffuse), distended. Absent: normoactive bowel sounds ( Decreased) - Routine Extremities Exam Present: no edema. Absent: cyanosis, clubbing Comments: SCD in place - Routine Musculoskeletal Exam Musculoskeletal: Present: no clubbing or cyanosis - Routine Skin Exam Present: dry, warm - Routine Neurological Exam Present: alert, oriented X3, CN II-XII intact, moving all extremities, vision grossly intact, hearing grossly intact, normal speech. Absent: motor deficit, altered mental status - Routine Psychiatric Exam Present: normal affect, normal thought process, cooperative Results - Labs CBC & Chem 7: 01/28/18 04:50 01/28/18 04:50 Assessment and Plan Assessment and Plan: Assessment Acute pancreatitis Leukocytosis Kidney stones ABHISHEK on CKD Stage III (Dr Fulton) Type 2 DM - diet controlled HLD/Hypertriglyceridemia GERD HTN Renal artery stenosis (s/p L balloon angioplasty 2014 - Dr Blackwell.) BPH (s/p TUNA procedure) Allergies Plan Lipase with gradual decrease. Renal status and electrolytes stable. WBC decreasing. BP and HR stable. Will transfer to medical floor for continuation of care. Need to continue NPO status to help resolve pancreatitis. Continue IVF. Will continue pain/nausea control. Recheck CBC, BMP, and Lipase in am due to pancreatitis. Case discussed with CCU nursing. Time spent with patient care 25 minutes. DVT Prophylaxis: SCD's GI Prophylaxis: Protonix - Time spent with patient Time with patient PN: 25 minutes - Physician Narrative Physician: Benitez Toussaint MD Narrative: Date: 01/28/18 Time: 1155 Hospital Course Summary Disclaimer: The visit summary below is not to be considered part of the above Progress Note. Hospital Course: 01/27/18 Admit to CCU, IP. Stay expected to exceed two midnights for IVF's and pain control for pancreatitis. CT reviewed from outside facility showing acute pancreatitis and nonobstructing renal stones. Will obtain GB US to exclude stones/cholecystitis. CBC, CMP, UA. Labs reviewed from outside facility. NPO. Hold home meds. IVF's. Morphine IV for pain (doesn't tolerate Dilaudid), Zofran IV and/or promethazine 25 IM (pt preference) PRN nausea. Protonix 40mg IV for GI ppx and GERD. Accuchecks, SSI. SCD's for VTE ppx. FULL CODE. Dr Flor - PCP. 01/28/18 Lipase with gradual decrease. Renal status and electrolytes stable. WBC decreasing. BP and HR stable. Will transfer to medical floor for continuation of care. Need to continue NPO status to help resolve pancreatitis. Continue IVF. Will continue pain/nausea control. Recheck CBC, BMP, and Lipase in am due to pancreatitis.
[2018-01-29] MEDS: MORPHINE SULFATE 4mg INJECTION IVP PRN ×9 (02:09→23:31)
[2018-01-29] MEDS: LR 1,000 ML IV SCH ×4 (02:13→23:42)
[2018-01-29] MEDS: PROMETHAZINE 25 MG INJECTION IM PRN ×4 (05:47→23:32)
[2018-01-29] MEDS: SALINE FLUSH 10ml SYRINGE IVF PRN ×5 (07:48→17:11)
[2018-01-29] MEDS: PANTOPRAZOLE 40 MG INJECTION IVP SCH (09:09)
--- NOTE | 2018-01-29 10:14 | Progress Note ---
- Date 01/29/18 Subjective: F/U: Acute pancreatitis Patient seen resting in bed this am. Notes diffuse ab pain, currently /- medications help. Ab pain increasing with positional changes and movement. Passing scant gas. No BM since the am on 01/27 prior to admission. Continued nausea. No appetite. Thirsty. Not SOA, but hurt in ab with deep breath. Not voiding much. Abdomen is distended. Objective Vital signs: Temperature 97.3 F 01/29/18 07:56 Pulse Rate 99 01/29/18 08:24 Respiratory Rate 20 01/29/18 07:56 Blood Pressure 148/89 H 01/29/18 07:56 Pulse Oximetry 92 01/29/18 07:56 Height/Weight/BMI: Height 1.75 m Weight 82.3 kg Body Mass Index 25.3 - Constitutional Present: mild distress, well nourished, well developed - Routine HEENT Exam Head: Present: normocephalic, atraumatic - Routine Respiratory Exam Present: CTA bilaterally. Absent: wheezes - Routine Cardiovascular Exam Present: RRR, no murmur - Routine Abdominal Exam Present: tenderness (diffuse), distended, guarding. Absent: normoactive bowel sounds (decreased BS's) - Routine Extremities Exam Present: no edema, normal capillary refill - Routine Skin Exam Present: dry, warm - Routine Neurological Exam Present: alert, oriented X3 - Routine Lymphatic Exam Lymphatic: Absent: adenopathy - Routine Psychiatric Exam Present: normal affect, cooperative Results - Labs CBC & Chem 7: 01/29/18 03:55 01/29/18 03:55 Assessment and Plan Assessment and Plan: Assessment Acute pancreatitis Leukocytosis Kidney stones hypocalcemia - not POA (likely d/t pancreatitis) ABHISHEK on CKD Stage III (Dr Fulton) Type 2 DM - diet controlled HLD/Hypertriglyceridemia GERD HTN Renal artery stenosis (s/p L balloon angioplasty 2014 - Dr Blackwell.) BPH (s/p TUNA procedure) Allergies Plan Renal function worse today. Cr 1.6-->2.5. BUN 36.0-->57.0. Postvoid bladder scan 350. Place Henriquez. Bolus NS 500 and increase LR to 150ml/hr. Need to continue NPO status to help resolve pancreatitis. Will continue pain/nausea control. Recheck CBC, CMP, mag, phosphorus, LDH and Lipase in am due to pancreatitis. Calcium low today - likely r/t to his pancreatitis -continue to monitor. SCD/Lovenox for VTE ppx. DVT Prophylaxis: SCD's, Lovenox - Time spent with patient Time with patient PN: 25 minutes - Physician Narrative Physician: Benitez Toussaint MD Narrative: Date: 01/29/18 Time: 1245 Have independently interviewed and examined pt. Chart reviewed. Case discussed with my LUNCHROOM AIDE. Care plan developed with my supervision; agree with above. Feels slightly better. Not as much nausea. Starting to feel hungry. Does feel very thirsty. Passing small amounts of flatus. No stool. Ab still very distended. Feels breathing okay-not SOA or congested. No chest pressure. Lungs: decreased, no distress CV: regular AB: distended, BS decreased EXT: no edema MSE: awake alert Plan: Will try sips of water/ice chip cautiously. ABHISHEK-place Henriquez, 500cc NS bolus given; will increase IV to 150cc/hr. Monitor for potential hypoglycemia as renal status with decline (less clearing of insulin). Pulm toilet. Monitor lab. Hospital Course Summary Disclaimer: The visit summary below is not to be considered part of the above Progress Note. Hospital Course: 01/27/18 Admit to CCU, IP. Stay expected to exceed two midnights for IVF's and pain control for pancreatitis. CT reviewed from outside facility showing acute pancreatitis and nonobstructing renal stones. Will obtain GB US to exclude stones/cholecystitis. CBC, CMP, UA. Labs reviewed from outside facility. NPO. Hold home meds. IVF's. Morphine IV for pain (doesn't tolerate Dilaudid), Zofran IV and/or promethazine 25 IM (pt preference) PRN nausea. Protonix 40mg IV for GI ppx and GERD. Accuchecks, SSI. SCD's for VTE ppx. FULL CODE. Dr Flor - PCP. 01/28/18 Lipase with gradual decrease. Renal status and electrolytes stable. WBC decreasing. BP and HR stable. Will transfer to medical floor for continuation of care. Need to continue NPO status to help resolve pancreatitis. Continue IVF. 01/29/18 Renal function worse today. Cr 1.6-->2.5. BUN 36.0-->57.0. Postvoid bladder scan 350. Place Henriquez. Bolus NS 500 and increase LR to 150ml/hr. Can try sips of water and ice chips. Calcium low today - likely r/t to his pancreatitis -continue to monitor. SCD/Lovenox for VTE ppx.
--- NOTE | 2018-01-29 11:33 | Ultrasound Report ---
Indication: Pancreatitis PROCEDURE: US gall bladder: Encounter: Initial Comparison: March 18, 2015 Technique: Grayscale and color Doppler sonographic imaging of the right upper quadrant of the abdomen was performed. Findings: Hepatic parenchyma is homogeneous without evidence for focal mass. The gallbladder is normal. There is no wall thickening, pericholecystic fluid, sonographic Salguero's sign or cholelithiasis. Both the intra and extrahepatic biliary system are of normal caliber with the common duct measuring 3 mm in dimension. Pancreas is not well seen due to shadowing bowel gas, but may be slightly thickened. The right kidney is present without collecting system dilatation. The right kidney measures 9.9 cm in length. Small amount of free fluid. Impression: Possible pancreatic thickening could represent pancreatitis. CT may be helpful for further evaluation. There is a preliminary report by [employer] radiologic. .
[2018-01-29] MEDS: ENOXAPARIN 40 MG/0.4 ML INJECTION SQ SCH (11:51)
[2018-01-29] MEDS: INSULIN ASPART 100unit/ml INJECTION SQ PRN (14:12)
[2018-01-29] MEDS: ONDANSETRON 4 MG/2 ML INJECTION IVP PRN (17:11)
[2018-01-29] MEDS: BISACODYL 10 MG SUPPOSITORY RECTALLY PRN (18:08)
[2018-01-30] MEDS: ONDANSETRON 4 MG/2 ML INJECTION IVP PRN ×2 (04:53→16:45)
[2018-01-30] MEDS: MORPHINE SULFATE 4mg INJECTION IVP PRN ×6 (04:53→23:41)
[2018-01-30] MEDS: INSULIN ASPART 100unit/ml INJECTION SQ PRN ×4 (07:26→22:37)
[2018-01-30] MEDS: LR 1,000 ML IV SCH ×5 (07:57→18:39)
[2018-01-30] MEDS: ENOXAPARIN 40 MG/0.4 ML INJECTION SQ SCH (08:00)
[2018-01-30] MEDS: PANTOPRAZOLE 40 MG INJECTION IVP SCH (08:00)
[2018-01-30] MEDS: PROMETHAZINE 25 MG INJECTION IM PRN ×2 (08:01→19:49)
[2018-01-30] MEDS ORDERED: ENOXAPARIN 40 MG/0.4 ML INJECTION SQ SCH (09:00)
--- NOTE | 2018-01-30 09:00 | XRay Report ---
EXAM: XR abdomen 2V DATE: 01/30/2018 8:00 AM Encounter: Subsequent INDICATION: Pancreatitis, ? Ileus COMPARISON: Gallbladder ultrasound 01/27/2018, abdominal CT 03/17/2015, abdominal radiograph 04/25/2013 Technique: Upright and supine AP abdominal radiographs were obtained. Findings: Multiple prominent gas-filled loops of small bowel noted within the central and left abdomen. Mild to moderate colonic gas and stool remain present. No intraperitoneal free air. Calcified pelvic phleboliths. No acute osseous abnormality identified. The visualized lung bases appear clear. Impression: Multiple prominent gas-filled loops of small bowel within the central and left abdomen with mild to moderate colonic gas and stool remaining present compatible with reactive ileus. .
[2018-01-30] MEDS ORDERED: CALCIUM GLUCONATE 1,000mg/10ml INJECTION IVP ONE (16:03)
--- NOTE | 2018-01-30 16:08 | Progress Note ---
- Date 01/30/18 Subjective: F/U: Acute pancreatitis About the same. Very distended/bloated to ab. Pain about the same. Not having increased pain or nausea with taking sips of water. Still feeling thirsty, but sips of water help. No appetite, but would like some juices. Reports passing flatus. Tolerating Henriquez. Breathing stable-not having cough/congestion or SOA. Feels very tire and weak. Did walk this morning-reports not able to go far. Objective Vital signs: Temperature 96.0 F L 01/30/18 14:44 Pulse Rate 97 01/30/18 14:44 Respiratory Rate 25 H 01/30/18 14:44 Blood Pressure 159/85 H 01/30/18 14:44 Pulse Oximetry 94 01/30/18 14:44 Height/Weight/BMI: Height 1.75 m Weight 85.7 kg Body Mass Index 25.3 - Constitutional Present: moderate distress, well nourished, well developed, average body habitus , cooperative Comments: Appears tired and weak. - Routine HEENT Exam Head: Present: normocephalic, atraumatic Eye: Present: EOMI, PERRL ENT: Present: mucous membranes dry - Routine Respiratory Exam Present: decreased breath sounds. Absent: rales, respiratory distress, rhonchi , wheezes, crackles - Routine Cardiovascular Exam Present: RRR, no murmur - Routine Abdominal Exam Present: tenderness (Mild, diffuse tenderness), distended. Absent: normoactive bowel sounds - Routine Extremities Exam Present: no edema, pulses intact. Absent: cyanosis, clubbing - Routine Skin Exam Present: dry, warm - Routine Neurological Exam Present: alert, oriented X3, CN II-XII intact, moving all extremities, vision grossly intact, hearing grossly intact, normal speech. Absent: motor deficit - Routine Psychiatric Exam Present: normal affect, cooperative. Absent: agitated, paranoid Results - Labs CBC & Chem 7: 01/30/18 04:16 01/30/18 04:16 Assessment and Plan Assessment and Plan: Assessment Acute pancreatitis Ab pain secondary to pancreatitis Ileus secondary to pancreatitis Leukocytosis Kidney stones Hypocalcemia - not POA (likely d/t pancreatitis) ABHISHEK on CKD Stage III (Dr Fulton) Type 2 DM - diet controlled HLD/Hypertriglyceridemia GERD HTN Renal artery stenosis (s/p L balloon angioplasty 2014 - Dr Blackwell.) BPH (s/p TUNA procedure) Allergies Plan With calcium and phos decreasing, will give 1 amp IV calcium gluconate and then KPhos bolus. Continue with IVF for support. Tolerating sips of water without increased nausea, ab pain, or increased lipase. Could cautiously try clear liquids. Will start routine Miralax and Dulcolax suppository tomorrow for ileus. Encourage ambulation as able. Continue with pain control. Recheck CMP, Mg, Phos, Lipase, LDH and CBC in am secondary to pancreatitis. DVT Prophylaxis: SCD's Resuscitation Status: Full Code - Time spent with patient Time with patient PN: 25 minutes - Physician Narrative Physician: Benitez Toussaint MD Narrative: Date: 01/30/18 Time: 1604 Hospital Course Summary Disclaimer: The visit summary below is not to be considered part of the above Progress Note. Hospital Course: 01/27/18 Admit to CCU, IP. Stay expected to exceed two midnights for IVF's and pain control for pancreatitis. CT reviewed from outside facility showing acute pancreatitis and nonobstructing renal stones. Will obtain GB US to exclude stones/cholecystitis. CBC, CMP, UA. Labs reviewed from outside facility. NPO. Hold home meds. IVF's. Morphine IV for pain (doesn't tolerate Dilaudid), Zofran IV and/or promethazine 25 IM (pt preference) PRN nausea. Protonix 40mg IV for GI ppx and GERD. Accuchecks, SSI. SCD's for VTE ppx. FULL CODE. Dr Flor - PCP. 01/28/18 Lipase with gradual decrease. Renal status and electrolytes stable. WBC decreasing. BP and HR stable. Will transfer to medical floor for continuation of care. Need to continue NPO status to help resolve pancreatitis. Continue IVF. 01/29/18 Renal function worse today. Cr 1.6-->2.5. BUN 36.0-->57.0. Postvoid bladder scan 350. Place Henriquez. Bolus NS 500 and increase LR to 150ml/hr. Can try sips of water and ice chips. Calcium low today - likely r/t to his pancreatitis -continue to monitor. SCD/Lovenox for VTE ppx. 01/30/18 With calcium and phos decreasing, will give 1 amp IV calcium gluconate and then KPhos bolus. Continue with IVF for support. Tolerating sips of water without increased nausea, ab pain, or increased lipase. Could cautiously try clear liquids. Will start routine Miralax and Dulcolax suppository tomorrow for ileus. Encourage ambulation as able. Continue with pain control. Recheck CMP, Mg, Phos, Lipase, KDH and CBC in am secondary to pancreatitis.
[2018-01-30] MEDS ORDERED: CALCIUM GLUCONATE 4.65 MEQ in NS 100 ML IV ONE (16:15)
[2018-01-30] MEDS: BISACODYL 10 MG SUPPOSITORY RECTALLY PRN (16:35)
[2018-01-30] MEDS ORDERED: POTASSIUM PHOSPHATE (mMol) 30 MMOL in NS 500ml 500 ML IV SCH (17:30)
[2018-01-30] MEDS: SALINE FLUSH 10ml SYRINGE IVF PRN (22:37)
[2018-01-31] MEDS: SALINE FLUSH 10ml SYRINGE IVF PRN ×4 (02:13→16:14)
[2018-01-31] MEDS: ONDANSETRON 4 MG/2 ML INJECTION IVP PRN (02:13)
[2018-01-31] MEDS: MORPHINE SULFATE 4mg INJECTION IVP PRN ×4 (03:13→16:13)
[2018-01-31] MEDS: LR 1,000 ML IV SCH ×8 (03:16→23:50)
[2018-01-31] MEDS: PROMETHAZINE 25 MG INJECTION IM PRN ×2 (06:48→16:29)
[2018-01-31] MEDS: INSULIN ASPART 100unit/ml INJECTION SQ PRN (07:01)
[2018-01-31] MEDS: PANTOPRAZOLE 40 MG INJECTION IVP SCH (08:44)
[2018-01-31] MEDS: ENOXAPARIN 40 MG/0.4 ML INJECTION SQ SCH (08:44)
[2018-01-31] MEDS ORDERED: BISACODYL 10 MG SUPPOSITORY RECTALLY SCH (09:00)
[2018-01-31] MEDS: POLYETHYL GLYCOL 3350 17gm PACKET PO SCH (10:26)
--- NOTE | 2018-01-31 11:42 | Progress Note ---
- Date 01/31/18 Subjective: Patient is seen this morning after nursing staff reports pt has seemed more confused and agitated and is now requiring O2. Reports he required one-on-one all night as he was trying to pull out his lines. Patient had been doing a little bit better yesterday and was allowed clear liquids. Overnight he was put back to NPO d/t increasing pain. He has had some loose stools overnight. Had dulcolax supp yesterday at 1635. He is able to tell me he felt a bit better after having the stool, but then the pain returned. Rates pain 8/10 currently. Is hyperventilating. Does have h/o anxiety. Was given ativan at hs, 0200 and 0647 this am. Last dose of morphine prior to my visit was 031. Objective Vital signs: Temperature 97.6 F 01/31/18 07:28 Pulse Rate 100 01/31/18 08:54 Respiratory Rate 30 H 01/31/18 08:58 Blood Pressure 177/83 H 01/31/18 07:28 Pulse Oximetry 91 01/31/18 08:54 Height/Weight/BMI: Height 1.75 m Weight 86.9 kg Body Mass Index 25.3 - Constitutional Present: moderate distress, well nourished, well developed - Routine HEENT Exam Head: Present: normocephalic, atraumatic - Routine Respiratory Exam Present: CTA bilaterally. Absent: wheezes Comments: tachypnea - Routine Cardiovascular Exam Present: no murmur, tachycardia - Routine Abdominal Exam Present: tenderness (diffuse), distended. Absent: normoactive bowel sounds - Routine Extremities Exam Present: no edema, normal capillary refill - Routine Skin Exam Present: dry, warm - Routine Neurological Exam Present: alert (able to answer some questions but does have some confusion) - Routine Lymphatic Exam Lymphatic: Absent: adenopathy - Routine Psychiatric Exam Present: cooperative, anxious Results - Labs CBC & Chem 7: 01/31/18 04:11 01/31/18 04:11 Labs: LDH trend 01/28/18 01/30/18 01/31/18 04:50 04:16 04:11 Lactate Dehydrogenase 639 H 3446 H 4603 H Lipase trend 01/28/18 01/29/18 01/30/18 04:50 03:55 04:16 Lipase 8402 H 3586 H 1002 H 01/31/18 04:11 Lipase 504 H Lipids 01/30/18 04:16 Triglycerides 467 H Cholesterol 158 VLDL Cholesterol 93.4 H HDL Cholesterol 20 L Cholesterol/HDL Ratio 7.9 H AST trend 01/27/18 01/30/18 01/31/18 09:57 04:16 04:11 AST 36 100 H D 117 H - Imaging and Cardiology Chest x-ray Additional comments: Date of Exam: 01/31/18 INDICATION: tachypnea PROCEDURE: CHEST 2-VIEWS UPRIGHT (PA & LAT) FINDINGS: Small pleural effusions with mild hypoinflation. Scattered airspace opacities in the lower lobes. Upper lung bishop are clear. No pneumothorax. Heart size and mediastinal contours are within normal limits. Pulmonary vascularity appears normal. Impression: Hypoinflation with small pleural effusions and lower lobe atelectasis. Assessment and Plan Assessment and Plan: Assessment Acute pancreatitis Ab pain secondary to pancreatitis Ileus secondary to pancreatitis Leukocytosis -POA (17.0) Kidney stones Hypocalcemia - not POA (likely d/t pancreatitis) ABHISHEK on CKD Stage III (Dr Fulton) Type 2 DM - diet controlled HLD/Hypertriglyceridemia (Trigs 467-on fenofibrate) GERD HTN Renal artery stenosis (s/p L balloon angioplasty 2014 - Dr Blackwell.) BPH (s/p TUNA procedure) Allergies Plan Pt worsening. Abd continues to be very distended/painful. Check CT abd/pelvis. Pt tachypneic and now requiring 2L O2. CXR shows hypoinflation with small pleural effusions and lower lobe atelectasis. Weight up 9# since admission. Yesterday pt had 1 amp IV calcium gluconate and KPhos bolus (for calcium of 4.7 and phos 2.1). Calcium remains low today at 4.7. Currently receiving LR at 150cc/hr. BP's stable, tachypneic and tachycardic . Afebrile. Further orders per Dr. Hodgson. DVT Prophylaxis: Lovenox GI Prophylaxis: Protonix Resuscitation Status: Full Code - Physician Narrative Physician: other (Mack Hodgson MD) Narrative: Date: 01/31/18 Time: 1125 Pt seen and evaluated by myself. Agree with the above assessment and plan, with the addition of the following: Abd severely distended. Hypoactive bowel sounds. Mild BLE edema. RRR. Approx 50cc/hr UOP. Severe abdominal distention: Due to pancreatitis and ascites. Discussed with Dr. Adamson. Will attempt to get a bladder pressure, monitor UOP and vitals closely to evaluate for developing abdominal compartment syndrome. Increased LR to 200ml/hr, monitor status closely. HypoCa: REplace with calcium gluconate 2g IV q8hr x 3 doses, monitor. Hospital Course Summary Disclaimer: The visit summary below is not to be considered part of the above Progress Note. Hospital Course: 01/27/18 Admit to CCU, IP. Stay expected to exceed two midnights for IVF's and pain control for pancreatitis. CT reviewed from outside facility showing acute pancreatitis and nonobstructing renal stones. Will obtain GB US to exclude stones/cholecystitis. CBC, CMP, UA. Labs reviewed from outside facility. NPO. Hold home meds. IVF's. Morphine IV for pain (doesn't tolerate Dilaudid), Zofran IV and/or promethazine 25 IM (pt preference) PRN nausea. Protonix 40mg IV for GI ppx and GERD. Accuchecks, SSI. SCD's for VTE ppx. FULL CODE. Dr Flor - PCP. 01/28/18 Lipase with gradual decrease. Renal status and electrolytes stable. WBC decreasing. BP and HR stable. Will transfer to medical floor for continuation of care. Need to continue NPO status to help resolve pancreatitis. Continue IVF. 01/29/18 Renal function worse today. Cr 1.6-->2.5. BUN 36.0-->57.0. Postvoid bladder scan 350. Place Henriquez. Bolus NS 500 and increase LR to 150ml/hr. Can try sips of water and ice chips. Calcium low today - likely r/t to his pancreatitis -continue to monitor. SCD/Lovenox for VTE ppx. 01/30/18 With calcium and phos decreasing, will give 1 amp IV calcium gluconate and then KPhos bolus. Continue with IVF for support. Tolerating sips of water without increased nausea, ab pain, or increased lipase. Could cautiously try clear liquids. Will start routine Miralax and Dulcolax suppository tomorrow for ileus. Encourage ambulation as able. Continue with pain control. Recheck CMP, Mg, Phos, Lipase, LDH and CBC in am secondary to pancreatitis. 01/31/18 Pt worsening. Abd continues to be very distended/painful. Check CT abd/pelvis. Pt tachypneic and now requiring 2L O2. CXR shows hypoinflation with small pleural effusions and lower lobe atelectasis. Weight up 9# since admission. Yesterday pt had 1 amp IV calcium gluconate and KPhos bolus (for calcium of 4.7 and phos 2.1). Calcium remains low today at 4.7. Currently receiving LR at 150cc/hr. BP's stable, tachypneic and tachycardic . Afebrile. Further orders per Dr. Hodgson.
--- NOTE | 2018-01-31 11:47 | XRay Report ---
INDICATION: tachypnea PROCEDURE: CHEST 2-VIEWS UPRIGHT (PA & LAT) Encounter: Initial COMPARISON: None FINDINGS: Small pleural effusions with mild hypoinflation. Scattered airspace opacities in the lower lobes. Upper lung bishop are clear. No pneumothorax. Heart size and mediastinal contours are within normal limits. Pulmonary vascularity appears normal. Impression: Hypoinflation with small pleural effusions and lower lobe atelectasis. .
--- NOTE | 2018-01-31 12:33 | CT Scan Report ---
Indication: pancreatitis, abd pain/distention PROCEDURE: CT abdomen pelvis wo con: Encounter: Initial Comparison: Gallbladder ultrasound dated January 27, 2018 Technique: Axial CT images were performed through the abdomen and pelvis without intravenous contrast. Coronal and sagittal two-dimensional reformats. Automated Exposure Control and Iterative Reconstruction dose reducing techniques were utilized. Findings: Small bilateral pleural effusions with lower lobe compressive atelectasis. Moderate amount of perihepatic ascites. No contour deforming liver mass. The gallbladder is distended. Calcified granulomas in the right lower lobe. The spleen is normal. There is significant thickening and inflammation of the pancreas diffusely. Fluid and inflammation seen in the central mesentery and retroperitoneum with fluid tracking along both paracolic gutters. The adrenal glands are normal. 5 mm lower pole left renal stone. Henriquez catheter within the bladder with a small focus of gas. Nonobstructing 3 mm left proximal ureteral stone near the ureteropelvic junction seen on axial image #49 at the L3 level. Small amount of free pelvic fluid. There is inflammation in the right abdominal mesentery with thick walled right colon and multiple dilated fluid-filled loops of small bowel measuring up to 4.6 cm in diameter. No focal transition point identified. Bone windows show no acute findings. Impression: 1. Severe acute pancreatitis with probable severe reactive ileus. 2. Nonobstructing 3 mm proximal left ureteral stone with additional left nephrolithiasis. 3. Third spacing of fluid with ascites and small effusions. .
[2018-01-31] MEDS: CALCIUM GLUCONATE 2,000 MG in NS 100 ML IV SCH (16:20)
[2018-01-31] MEDS: LABETALOL 100mg/20ml INJECTION IVP PRN (18:09)
[2018-01-31] MEDS: ALBUTEROL 2.5mg/3ml (0.083%) NEB AEROSOL PRN (18:15)
[2018-01-31] MEDS ORDERED: DEXMEDETOMIDINE 200 MCG in NS 50 ML IV PRN (18:39)
[2018-01-31] MEDS: DEXMEDETOMIDINE 200 MCG in NS 50 ML IV PRN ×2 (18:46→21:29)
[2018-01-31] MEDS ORDERED: MIDAZOLAM 2mg/2ml INJECTION IVP ONE (19:19)
[2018-01-31] MEDS: MIDAZOLAM 2mg/2ml INJECTION IVP PRN (23:20)
[2018-02-01] MEDS: DEXMEDETOMIDINE 200 MCG in NS 50 ML IV PRN ×3 (00:31→06:15)
[2018-02-01] MEDS: MIDAZOLAM 2mg/2ml INJECTION IVP PRN ×5 (01:27→08:17)
[2018-02-01] MEDS: CALCIUM GLUCONATE 2,000 MG in NS 100 ML IV SCH ×2 (01:44→09:33)
[2018-02-01] MEDS ORDERED: ACETAMINOPHEN 650 MG SUPPOSITORY PR PRN (03:07)
[2018-02-01] MEDS ORDERED: MIDAZOLAM 2mg/2ml INJECTION IVP PRN (03:27)
[2018-02-01] MEDS: MORPHINE SULFATE 4mg INJECTION IVP PRN ×2 (03:28→10:42)
[2018-02-01] MEDS ORDERED: MIDAZOLAM 2mg/2ml INJECTION IVP ONE (03:31)
[2018-02-01] MEDS ORDERED: HALOPERIDOL 5 MG/ML INJECTION IVP PRN (04:16)
[2018-02-01] MEDS: SALINE FLUSH 10ml SYRINGE IVF PRN (05:18)
[2018-02-01] MEDS: MetroNIDAZOLE PB 500 MG/100 ML BAG IV SCH ×2 (06:39→13:57)
[2018-02-01] MEDS ORDERED: DEXMEDETOMIDINE IV PRN (07:55)
[2018-02-01] MEDS ORDERED: NS IV PRN (07:55)
[2018-02-01] MEDS: ENOXAPARIN 40 MG/0.4 ML INJECTION SQ SCH (08:24)
[2018-02-01] MEDS: PANTOPRAZOLE 40 MG INJECTION IVP SCH (08:25)
--- NOTE | 2018-02-01 08:48 | XRay Report ---
Indication: hypoxia PROCEDURE: XR chest 1V: Encounter: Initial Comparison: January 31, 2018 Findings: Lungs remain hypoinflated. Small pleural effusions are grossly stable. No pneumothorax. Heart size and mediastinal contours are stable. Mild vascular congestion. Impression: No change. .
[2018-02-01] MEDS: LR 1,000 ML IV SCH (09:35)
--- NOTE | 2018-02-01 09:37 | Progress Note ---
- Date 02/01/18 Very involved day yesterday. Pt was transferred to ICU given that he was confused, pulling off his O2 nasal cannula. In the ICU, was placed on BiPAP and precedex gtt along with PRN versed. Did spike a fever overnight, and was started on cipro and flagyl. Has maintained good UOP overnight, and has been hemodynamically stable. This am, he is able to vocalize in response to questions , although difficult to understand through BiPAP mask. Does not currently feel short of breath. Denies abd pain. Objective Vital signs: Temperature 101.5 F H 02/01/18 07:31 Pulse Rate 126 H 02/01/18 08:00 Respiratory Rate 36 H 02/01/18 08:00 Blood Pressure 188/84 H 02/01/18 08:00 Pulse Oximetry 94 02/01/18 08:00 Height/Weight/BMI: Height 5 ft 9 in Weight 87.5 kg Body Mass Index 25.3 - Constitutional Present: mild distress (Somewhat responsive, although appears anxious. ), well developed - Routine HEENT Exam Head: Present: normocephalic, atraumatic Eye: Present: EOMI, PERRL ENT: Present: mucous membranes moist, oropharynx clear, external ear normal - Routine Respiratory Exam Present: CTA bilaterally. Absent: wheezes, crackles - Routine Cardiovascular Exam Present: RRR. Absent: murmur, gallop, rubs - Routine Abdominal Exam Present: non tender, distended (Slightly less distended than yesterday. ). Absent: normoactive bowel sounds (Hypoactive bowel sounds. ), organomegaly - Routine Extremities Exam Present: edema (Mild-moderate LE edema extending to thighs. ), full ROM, normal capillary refill. Absent: cyanosis - Routine Skin Exam Present: intact, dry. Absent: jaundice, rash - Routine Neurological Exam Present: moving all extremities (5/5 strength). Absent: alert (Somnolent, on sedation. ), altered mental status - Routine Psychiatric Exam Present: anxious. Absent: depressed Results - Labs CBC & Chem 7: 02/01/18 04:53 02/01/18 04:44 Microbiology Results: Microbiology 02/01/18 04:44 Peripheral/Iv Start Blood Culture - Preliminary Culture Initiated - Results Pending 02/01/18 04:53 Peripheral/Iv Start Blood Culture - Preliminary Culture Initiated - Results Pending - ABG Interpretation ABG results: 01/31/18 19:46 ABG pH 7.423 ABG pCO2 31 L ABG pO2 108.0 H ABG HCO3 20.0 L ABG Total CO2 21.0 L ABG O2 Saturation 98.4 H ABG Base Excess -3.6 L Assessment and Plan Assessment and Plan: Assessment/Plan Acute pancreatitis: No EtOH, gallstone, severe hypertriglyceridemia. Idiopathic. Has been NPO since admit 01/27. Lipase has normalized, has associated abdominal distention that is slightly improved from yesterday. Spiked fever overnight, and along with left shift was placed on cipro/flagyl (02/01), although no necrosis identified on CT abd/pelvis. Continue antibiotics. Decrease LR to 100ml/hr given LE edema, worsening pulmonary edema. Acute hypoxic resp failure: Due to 3rd spacing from fluid resuscitation for pancreatitis. Currently on BiPAP 28/01. Transition to vapotherm, wean off precedex and sedation. Hypocalcemia: Due to pancreatitis. Continue calcium gluconate 2g IV q8hrs, follow Ca and iCa levels. Hypokalemia: Replace. ABHISHEK on CKD stage 3 Baseline Cr ~ 1.8, currently at 2.2. UOP >50ml/hr. Now on LR at 100ml/hr. Monitor Cr. Hypertriglyceridemia: On fenofibrate at home. Cont once taking meds. HTN: Restart home labetalol and nifedipine. Hold HCTZ. IV labetalol PRN. DMII: Diet controlled. SSI GERD PPI Renal artery stenosis (s/p L balloon angioplasty 2014 - Dr Balckwell.) No acute issues. BPH (s/p TUNA procedure) No acute issues. Proph: Lovenox. Dispo: Remain in ICU. - Physician Narrative Narrative: Date: 02/01/18 Time: 928 Hospital Course Summary Disclaimer: The visit summary below is not to be considered part of the above Progress Note. Hospital Course: 01/27/18 Admit to CCU, IP. Stay expected to exceed two midnights for IVF's and pain control for pancreatitis. CT reviewed from outside facility showing acute pancreatitis and nonobstructing renal stones. Will obtain GB US to exclude stones/cholecystitis. CBC, CMP, UA. Labs reviewed from outside facility. NPO. Hold home meds. IVF's. Morphine IV for pain (doesn't tolerate Dilaudid), Zofran IV and/or promethazine 25 IM (pt preference) PRN nausea. Protonix 40mg IV for GI ppx and GERD. Accuchecks, SSI. SCD's for VTE ppx. FULL CODE. Dr Flor - PCP. 01/28/18 Lipase with gradual decrease. Renal status and electrolytes stable. WBC decreasing. BP and HR stable. Will transfer to medical floor for continuation of care. Need to continue NPO status to help resolve pancreatitis. Continue IVF. 01/29/18 Renal function worse today. Cr 1.6-->2.5. BUN 36.0-->57.0. Postvoid bladder scan 350. Place Henriquez. Bolus NS 500 and increase LR to 150ml/hr. Can try sips of water and ice chips. Calcium low today - likely r/t to his pancreatitis -continue to monitor. SCD/Lovenox for VTE ppx. 01/30/18 With calcium and phos decreasing, will give 1 amp IV calcium gluconate and then KPhos bolus. Continue with IVF for support. Tolerating sips of water without increased nausea, ab pain, or increased lipase. Could cautiously try clear liquids. Will start routine Miralax and Dulcolax suppository tomorrow for ileus. Encourage ambulation as able. Continue with pain control. Recheck CMP, Mg, Phos, Lipase, LDH and CBC in am secondary to pancreatitis. 01/31/18 Pt worsening. Abd continues to be very distended/painful. Check CT abd/pelvis. Pt tachypneic and now requiring 2L O2. CXR shows hypoinflation with small pleural effusions and lower lobe atelectasis. Weight up 9# since admission. Yesterday pt had 1 amp IV calcium gluconate and KPhos bolus (for calcium of 4.7 and phos 2.1). Calcium remains low today at 4.7. Currently receiving LR at 150cc/hr. BP's stable, tachypneic and tachycardic . Afebrile. 02/01 Increasing pulm edema and LE edema, normalized lipase. Decreased IVF, transition off BiPAP to vapotherm if able and wean off sedation. On cipro and flagyl now, as spiked fever overnight. Monitor in ICU.
[2018-02-01] MEDS ORDERED: LABETALOL 100 MG TABLET PO SCH (09:45)
[2018-02-01] MEDS ORDERED: LABETALOL HCL PO SCH (10:00)
[2018-02-01] MEDS: POLYETHYL GLYCOL 3350 17gm PACKET PO SCH (10:31)
[2018-02-01] MEDS: POTASSIUM CHLORIDE PREMIX 10 MEQ/100 ML BAG IV SCH ×3 (10:44→12:46)
[2018-02-01] MEDS: LABETALOL 100mg/20ml INJECTION IVP PRN (10:46)
[2018-02-01] MEDS ORDERED: FALL RISK - PHARMACY CONSULT MC ONE (11:52)
[2018-02-01] MEDS: ALBUTEROL 2.5mg/3ml (0.083%) NEB AEROSOL PRN (12:25)
[2018-02-01 13:43] VITALS: BMI 28.5
[2018-02-01] MEDS ORDERED: DEXTROSE 50% SYRINGE 50ml (1 AMP) IVP ONE (14:12)
[2018-02-01] MEDS ORDERED: D5LR 1,000 ML IV SCH (14:15)
[2018-02-01] MEDS ORDERED: LR 500 ML IV SCH (14:45)
[2018-02-01] MEDS ORDERED: NOREPINEPHRINE DRIP 4,000 MCG in NS 250ml 250 ML IV PRN (14:50)
[2018-02-01] MEDS ORDERED: NS IV SCH (15:45)
[2018-02-01] MEDS ORDERED: VASOPRESSIN IV SCH (15:45)
[2018-02-01] MEDS ORDERED: ERTAPENEM 1 G in NS 100 ML IV ONE (16:00)
[2018-02-01] MEDS ORDERED: ROCURONIUM 50 MG/5 ML INJECTION IVP ONE (16:34)
[2018-02-01 16:43] VITALS: TEMP 99.2
[2018-02-01] MEDS ORDERED: LR 1,000 ML IV SCH (16:45)
--- NOTE | 2018-02-01 16:49 | XRay Report ---
Indication: intubation PROCEDURE: XR chest 1V: Encounter: Initial Comparison: February 01, 2018 at 0522 Findings: New nasogastric tube in place with the tip and proximal side port projecting over the body of the stomach. Left-sided PICC line in place with the tip projecting over the right atrium. This could be retracted by approximately 3 cm to reside at the cavoatrial junction. Multiple overlying monitoring leads. Endotracheal tube in place with the tip projecting 4 cm above the sangeeta. No gross pneumothorax. Mild hypoinflation is again noted along with small pleural effusions. Pulmonary vascularity cannot be evaluated on a supine view. Heart size and mediastinal contours are stable. Impression: Tubes and lines as above. .
--- NOTE | 2018-02-01 17:16 | Anesthesia Procedure Note ---
IRU ANES Consult Intubation - Date and Time Date and Time: 02/01/18 Allergies/Adverse Reactions: Allergies Allergy/AdvReac Type Severity Reaction Status Date / Time latex Allergy Unknown RASH Verified 11/02/15 11:12 Penicillins Allergy Unknown RASH Verified 11/02/15 11:04 oxycodone AdvReac Intermediate HALLUCINATI Verified 11/02/15 11:04 ON lisinopril AdvReac Unknown Verified 11/02/15 11:04 losartan AdvReac Unknown Verified 11/02/15 11:04 nifedipine AdvReac Unknown SEVERE Verified 11/02/15 11:04 HEADACHES COBAN Allergy Unknown Uncoded 11/02/15 11:12 hydromorphone HCl Allergy Unknown ITCHING Uncoded 11/02/15 11:04 - Vital Signs Initial Vital Signs: Temperature 96.8 F 01/27/18 07:52 Temperature Source Temporal Artery Scan 01/27/18 07:52 Pulse Rate 59 L 01/27/18 07:52 Respiratory Rate 13 01/27/18 07:52 Pulse Oximetry 94 01/27/18 07:52 Post Vital Signs: Temperature 99.2 F 02/01/18 16:41 Temperature Source Temporal Artery Scan 02/01/18 16:41 Pulse Rate 102 H 02/01/18 16:41 Pulse Rhythm 02/01/18 12:00 Respiratory Rate 12 02/01/18 16:41 Respiratory Effort Labored 02/01/18 08:00 Respiratory Depth Shallow 02/01/18 12:00 Respiratory Pattern 02/01/18 12:00 Blood Pressure 99/54 02/01/18 16:40 Blood Pressure Mean 69 02/01/18 16:40 Blood Pressure Position Supine 01/31/18 17:08 Pulse Oximetry 93 02/01/18 16:41 Oxygen Delivery Method 02/01/18 11:00 Oxygen Flow Rate 30 02/01/18 11:24 Fraction of Inspired Oxygen 80 02/01/18 11:00 - Medications Inpatient Medications: Acetaminophen (Tylenol) 650 mg OK Q5H PRN PRN Reason: Pain Last Admin: 02/01/18 03:08 Dose: 650 mg Albuterol Sulfate (Proventil Neb (0.083%)) 2.5 mg AEROSOL RTQID PRN PRN Reason: Wheezing Last Admin: 02/01/18 12:25 Dose: 2.5 mg Bisacodyl (Dulcolax) 10 mg RECTALLY DAILY PRN PRN Reason: Constipation Last Admin: 01/30/18 16:35 Dose: 10 mg Bisacodyl (Dulcolax) 10 mg RECTALLY DAILY [facility] Last Admin: 01/31/18 08:44 Dose: 10 mg Enoxaparin Sodium (Lovenox) 40 mg SQ DAILY [facility] Last Admin: 02/01/18 08:24 Dose: 40 mg Haloperidol Lactate (Haldol) 5 mg IVP O PRN PRN Reason: Agitation Last Admin: 02/01/18 04:24 Dose: 5 mg Calcium Gluconate 2,000 mg/ (Sodium Chloride) 120 mls @ 300 mls/hr IV Q8HR [facility] Stop: 02/02/18 09:23 Last Infusion: 02/01/18 10:00 Dose: Infused Metronidazole/Sodium Chloride (Flagyl Iv Premix) 500 mg in 100 mls @ 100 mls/ hr IV Q8H [facility] Last Infusion: 02/01/18 14:42 Dose: 0 mls/hr Ciprofloxacin Lactate (Cipro 400 Mg Premix) 400 mg in 200 mls @ 200 mls/hr IV Q12H [facility] Last Admin: 02/01/18 08:07 Dose: 200 mls/hr Dexmedetomidine HCl 1,000 mcg/ (Sodium Chloride) 260 mls @ 22.75 mls/hr IV .[id number] PRN; 1 MCG/KG/HR PRN Reason: Protocol Last Titration: 02/01/18 13:59 Dose: 0.95 mcg/kg/hr, 21.7 mls/hr Dextrose/Lactated Ringer's (Dextrose 5%-Lactated Ringers) 1,000 mls @ 50 mls/ hr IV .Q20H [facility] Last Admin: 02/01/18 14:23 Dose: 50 mls/hr Lactated Ringer's (Lactated Ringers) 500 mls @ 999 mls/hr IV .Q31M [facility] Norepinephrine Bitartrate 4, (000 mcg/ Sodium Chloride) 254 mls @ 19.05 mls/hr IV .[id number] PRN; 5 MCG/MIN PRN Reason: Protocol Vasopressin 20 unit/ Sodium (Chloride) 100 mls @ 9 mls/hr IV .Q11H7M [facility]ANNE; 0.03 UNIT/MIN PRN Reason: Protocol Lactated Ringer's (Lactated Ringers) 1,000 mls @ 125 mls/hr IV .Q8H [facility] Last Admin: 02/01/18 16:44 Dose: 125 mls/hr Insulin Aspart (Novolog) 1 - 5 unit SQ SS PRN; Protocol PRN Reason: Hyperglycemia Last Admin: 01/31/18 07:01 Dose: 1 unit Labetalol HCl (Trandate) 10 mg IVP Q1HR PRN PRN Reason: Hypertension Last Admin: 02/01/18 10:46 Dose: 10 mg Lorazepam (Ativan Inj) 1 mg IVP Q4H PRN PRN Reason: Anxiety Last Admin: 02/01/18 00:57 Dose: 1 mg Lorazepam (Ativan Inj) 2 mg IVP O [facility] Last Admin: 01/31/18 22:36 Dose: Not Given Midazolam HCl (Versed) 2 mg IVP Q1H PRN Last Admin: 02/01/18 08:17 Dose: 2 mg Morphine Sulfate (Morphine Sulfate Inj) 4 mg IVP Q2HR PRN PRN Reason: Pain Last Admin: 02/01/18 10:42 Dose: 4 mg Ondansetron HCl (Zofran) 4 mg IVP Q6H PRN PRN Reason: Nausea &/or vomiting Last Admin: 01/31/18 02:13 Dose: 4 mg Pantoprazole Sodium (Protonix Iv) 40 mg IVP DAILY [facility] Last Admin: 02/01/18 08:25 Dose: 40 mg Polyethylene Glycol (Miralax) 17 gm PO DAILY [facility] Last Admin: 02/01/18 10:31 Dose: Not Given Promethazine HCl (Phenergan Inj) 25 mg IM Q4H PRN Last Admin: 01/31/18 16:29 Dose: 25 mg Sodium Chloride (Iv Flush) 10 - 80 ml IVF PRN PRN PRN Reason: Flushing Last Admin: 02/01/18 05:18 Dose: 30 ml - Home Medications Home Medications: Home Medications Medication Instructions Recorded Confirmed Type Multivit with Iron-Minerals 1 tab PO DAILY #0 04/17/13 01/27/18 History Atorvastatin Calcium 20 mg PO HS #0 11/02/15 01/27/18 History Fluticasone Nasal [place] [Flonase] 2 spray NS HS #0 11/02/15 01/27/18 History LINAGLIPTIN 5mg [Tradjenta] 5 mg PO DAILY #0 11/02/15 01/27/18 History Labetalol HCl 450 mg PO BID #0 11/02/15 01/27/18 History Potassium Citrate [Potassium 20 meq PO BID #0 11/02/15 01/27/18 History Citrate ER] Acetaminophen [Acetaminophen Extra 1,000 mg PO Q4HPRN PRN 01/27/18 01/27/18 History Strength] Allopurinol [Zyloprim] 300 mg PO DAILY 01/27/18 01/27/18 History Aspirin *EC* [Ecotrin] 1 tab PO DAILY 01/27/18 01/27/18 History Buspirone HCl 10 mg PO BID 01/27/18 01/27/18 History Doxazosin [Cardura] 0.5 tab PO HS 01/27/18 01/27/18 History Fenofibrate Nanocrystallized 145 mg PO DAILY 01/27/18 01/27/18 History [Fenofibrate] HydroCHLOROthiazide [Hydrodiuril] 1 tab PO DAILY 01/27/18 01/27/18 History Loratadine [Claritin] 10 mg PO PRN 01/27/18 01/27/18 History NIFEdipine [Nifedipine ER] 90 mg PO DAILY 01/27/18 01/27/18 History Ranitidine [Zantac] 150 mg PO PRN 01/27/18 01/27/18 History Sertraline HCl [Zoloft] 200 mg PO DAILY 01/27/18 01/27/18 History - Patient History Patient History: I have evaluated this patient and found no changes in the patient's history. - Pertinent Findings Lab: 02/01/18 15:16 02/01/18 15:16 - Physical Exam Respiratory: Bilateral Breath Sounds Equal Cardiovascular: Other (CPR is progress) - Procedure ET Tube Depth at Upper Lip: 24 (DVL using glidescope, atraumatic intubation with 8 fr ETT) - ET Tube Placement ET Tube Placement #1 Confirmed ET Tube Placement By: Bilateral Breath Sounds, Visualized Through Cord.., CXR (pending), Capnography
--- NOTE | 2018-02-01 17:20 | Anesthesia Preoperative Report ---
Anesthesia Preoperative Record - Date and Time Date: 02/01/18 Preoperative Diagnosis: Pancreatitis Allergies/Adverse Reactions: Allergies Allergy/AdvReac Type Severity Reaction Status Date / Time latex Allergy Unknown RASH Verified 11/02/15 11:12 Penicillins Allergy Unknown RASH Verified 11/02/15 11:04 oxycodone AdvReac Intermediate HALLUCINATI Verified 11/02/15 11:04 ON lisinopril AdvReac Unknown Verified 11/02/15 11:04 losartan AdvReac Unknown Verified 11/02/15 11:04 nifedipine AdvReac Unknown SEVERE Verified 11/02/15 11:04 HEADACHES COBAN Allergy Unknown Uncoded 11/02/15 11:12 hydromorphone HCl Allergy Unknown ITCHING Uncoded 11/02/15 11:04 - Vital Signs Vital Signs: Temperature 99.2 F 02/01/18 16:41 Pulse Rate 102 H 02/01/18 16:41 Respiratory Rate 12 02/01/18 16:41 Blood Pressure 99/54 02/01/18 16:40 Pulse Oximetry 93 02/01/18 16:41 Height and Weight: Height 1.75 m Weight 87.5 kg Body Mass Index 28.5 - Medications Inpatient Medications: Current Medications Acetaminophen (Tylenol) 650 mg ND Q5H PRN PRN Reason: Pain Last Admin: 02/01/18 03:08 Dose: 650 mg Albuterol Sulfate (Proventil Neb (0.083%)) 2.5 mg AEROSOL RTQID PRN PRN Reason: Wheezing Last Admin: 02/01/18 12:25 Dose: 2.5 mg Bisacodyl (Dulcolax) 10 mg RECTALLY DAILY PRN PRN Reason: Constipation Last Admin: 01/30/18 16:35 Dose: 10 mg Bisacodyl (Dulcolax) 10 mg RECTALLY DAILY [facility] Last Admin: 01/31/18 08:44 Dose: 10 mg Enoxaparin Sodium (Lovenox) 40 mg SQ DAILY [facility] Last Admin: 02/01/18 08:24 Dose: 40 mg Haloperidol Lactate (Haldol) 5 mg IVP O PRN PRN Reason: Agitation Last Admin: 02/01/18 04:24 Dose: 5 mg Calcium Gluconate 2,000 mg/ (Sodium Chloride) 120 mls @ 300 mls/hr IV Q8HR [facility] Stop: 02/02/18 09:23 Last Infusion: 02/01/18 10:00 Dose: Infused Metronidazole/Sodium Chloride (Flagyl Iv Premix) 500 mg in 100 mls @ 100 mls/ hr IV Q8H [facility] Last Infusion: 02/01/18 14:42 Dose: 0 mls/hr Ciprofloxacin Lactate (Cipro 400 Mg Premix) 400 mg in 200 mls @ 200 mls/hr IV Q12H [facility] Last Admin: 02/01/18 08:07 Dose: 200 mls/hr Dexmedetomidine HCl 1,000 mcg/ (Sodium Chloride) 260 mls @ 22.75 mls/hr IV .[id number] PRN; 1 MCG/KG/HR PRN Reason: Protocol Last Titration: 02/01/18 13:59 Dose: 0.95 mcg/kg/hr, 21.7 mls/hr Dextrose/Lactated Ringer's (Dextrose 5%-Lactated Ringers) 1,000 mls @ 50 mls/ hr IV .Q20H [facility] Last Admin: 02/01/18 14:23 Dose: 50 mls/hr Lactated Ringer's (Lactated Ringers) 500 mls @ 999 mls/hr IV .Q31M [facility] Norepinephrine Bitartrate 4, (000 mcg/ Sodium Chloride) 254 mls @ 19.05 mls/hr IV .[id number] PRN; 5 MCG/MIN PRN Reason: Protocol Vasopressin 20 unit/ Sodium (Chloride) 100 mls @ 9 mls/hr IV .Q11H7M BRIANNE; 0.03 UNIT/MIN PRN Reason: Protocol Lactated Ringer's (Lactated Ringers) 1,000 mls @ 125 mls/hr IV .Q8H [facility] Last Admin: 02/01/18 16:44 Dose: 125 mls/hr Insulin Aspart (Novolog) 1 - 5 unit SQ SS PRN; Protocol PRN Reason: Hyperglycemia Last Admin: 01/31/18 07:01 Dose: 1 unit Labetalol HCl (Trandate) 10 mg IVP Q1HR PRN PRN Reason: Hypertension Last Admin: 02/01/18 10:46 Dose: 10 mg Lorazepam (Ativan Inj) 1 mg IVP Q4H PRN PRN Reason: Anxiety Last Admin: 02/01/18 00:57 Dose: 1 mg Lorazepam (Ativan Inj) 2 mg IVP O [facility]ANNE Last Admin: 01/31/18 22:36 Dose: Not Given Midazolam HCl (Versed) 2 mg IVP Q1H PRN Last Admin: 02/01/18 08:17 Dose: 2 mg Morphine Sulfate (Morphine Sulfate Inj) 4 mg IVP Q2HR PRN PRN Reason: Pain Last Admin: 02/01/18 10:42 Dose: 4 mg Ondansetron HCl (Zofran) 4 mg IVP Q6H PRN PRN Reason: Nausea &/or vomiting Last Admin: 01/31/18 02:13 Dose: 4 mg Pantoprazole Sodium (Protonix Iv) 40 mg IVP DAILY [facility] Last Admin: 02/01/18 08:25 Dose: 40 mg Polyethylene Glycol (Miralax) 17 gm PO DAILY [facility] Last Admin: 02/01/18 10:31 Dose: Not Given Promethazine HCl (Phenergan Inj) 25 mg IM Q4H PRN Last Admin: 01/31/18 16:29 Dose: 25 mg Sodium Chloride (Iv Flush) 10 - 80 ml IVF PRN PRN PRN Reason: Flushing Last Admin: 02/01/18 05:18 Dose: 30 ml Home Medications: Home Medications Medication Instructions Recorded Confirmed Type Multivit with Iron-Minerals 1 tab PO DAILY #0 04/17/13 01/27/18 History Atorvastatin Calcium 20 mg PO HS #0 11/02/15 01/27/18 History Fluticasone Nasal [place] [Flonase] 2 spray NS HS #0 11/02/15 01/27/18 History LINAGLIPTIN 5mg [Tradjenta] 5 mg PO DAILY #0 11/02/15 01/27/18 History Labetalol HCl 450 mg PO BID #0 11/02/15 01/27/18 History Potassium Citrate [Potassium 20 meq PO BID #0 11/02/15 01/27/18 History Citrate ER] Acetaminophen [Acetaminophen Extra 1,000 mg PO Q4HPRN PRN 01/27/18 01/27/18 History Strength] Allopurinol [Zyloprim] 300 mg PO DAILY 01/27/18 01/27/18 History Aspirin *EC* [Ecotrin] 1 tab PO DAILY 01/27/18 01/27/18 History Buspirone HCl 10 mg PO BID 01/27/18 01/27/18 History Doxazosin [Cardura] 0.5 tab PO HS 01/27/18 01/27/18 History Fenofibrate Nanocrystallized 145 mg PO DAILY 01/27/18 01/27/18 History [Fenofibrate] HydroCHLOROthiazide [Hydrodiuril] 1 tab PO DAILY 01/27/18 01/27/18 History Loratadine [Claritin] 10 mg PO PRN 01/27/18 01/27/18 History NIFEdipine [Nifedipine ER] 90 mg PO DAILY 01/27/18 01/27/18 History Ranitidine [Zantac] 150 mg PO PRN 01/27/18 01/27/18 History Sertraline HCl [Zoloft] 200 mg PO DAILY 01/27/18 01/27/18 History - Medical History Respiratory: Reports: Sleep Apnea Gastrointestional: Reports: Gastroesophageal Reflux Disease Neuro/Musculoskeletal: Reports: Back Problems, Headaches Renal/Endocrine: Reports: Diabetes Mellitus Type 2 - Surgical History HEENT Surgeries: Reports: Nose Surgery Cardiac Surgeries/Treatments: DENIES: Pacemaker Respiratory Surgery/Treatments: Reports: CPAP Use GI Surgery/Treatments: Reports: Hernia Repair (2017) Surgery/Treatment: REPORT: Other (pt states TUNA procedure) Musculoskeletal Surgery/Tx: Reports: Carpal Tunnel Release (bialteral wrists) Reproductive Surgery/Treatment: DENIES: Mastectomy - Social History Smoking Status: Never smoker Substance Use Type: does not use Alcohol Intake Frequency: does not drink - Pertinent Findings Laboratory: CBC and BMP 02/01/18 15:16 02/01/18 15:16 BMP 02/01/18 02/01/18 04:44 15:16 Sodium 143 143 Potassium 3.4 L 5.1 H D Chloride 109 H 112 H Carbon Dioxide 20 L 16 L BUN 71.0 H* 84.0 H* Creatinine 2.1 H 2.7 H D Glucose 116 H 71 L Calcium 5.4 L* D 5.4 L* Liver Function 02/01/18 02/01/18 Range/Units 04:44 15:16 Total Bilirubin 3.50 H (0.20-1.30) MG/DL AST 134 H (17-59) U/L ALT 41 (1-50) U/L Alkaline Phosphatase 44 (38-126) U/L Albumin 2.8 L 2.7 L (3.5-5.0) g/dL EKG: Sinus Tachycardia, Asystole - Physical Exam Respiratory Exam: Present: bilateral breath sounds equal - ASA ASA Score: 5, E - Discussion Discussion: Discussed risks/options/alternatives of anesthesia and questions answered. Patient consents. Nursing pain assessment noted. Present for Discussion: family member (CPR in progress. ) Attestation Statement: Prior to the delivery of any anesthetic medication, I examined the patient, developed the plan, obtained the patient's consent and discussed the risk and benefits of the procedure with the patient/guardian. - Additional Information Seen by Anesthesia: Yes (history unchanged)
[2018-02-01] MEDS ORDERED: EPINEPHRINE 1 MG/10 ML PFS IV ONE (18:28)
[2018-02-01] MEDS ORDERED: SODIUM BICARBONATE 8.4% (50mEq/50ml) PFS (1 amp) IVP ONE (18:28)
[2018-02-01] MEDS ORDERED: CALCIUM CHLORIDE 10% (1000mg/10ml) PFS INJECTION IVP ONE (18:28)
--- NOTE | 2018-02-01 18:54 | Consultation ---
DATE OF CONSULTATION 02/01/2018 CONSULTING PHYSICIAN Ghanshyam Damon MD REQUESTING PHYSICIAN Dr. Mack Hodgson REASON FOR CONSULTATION Possible abdominal compartment syndrome. IMPRESSION 1. Abdominal compartment syndrome related to severe pancreatitis. 2. Severe acute pancreatitis. 3. Status post Code Blue today. 4. Shock related to abdominal compartment syndrome. RECOMMENDATIONS 1. During the course of evaluation the patient did become hypotensive again following Code Blue and I did feel that decompressive laparotomy was necessary emergently to try to prevent another Code Blue situation. 2. I do think that the patient's open abdomen will need to be managed in a tertiary care facility and so I recommend transfer to a surgical intensive care unit in [place]. HISTORY OF PRESENT ILLNESS Avery is a 67-year-old male with severe acute pancreatitis who had developed worsening abdominal distention. Yesterday he had some mental status changes. Today the patient was worsening and did have a Code Blue event. I had been contacted by the hospitalist by telephone and presented to the CCU for evaluation of the patient. By that point in time the patient was being actively coded. A pulse was regained. The patient had been intubated by Anesthesia. The patient was on multiple pressors and during the time of evaluation his systolic blood pressures decreased again into the 60s despite pressors and fluid boluses. OBJECTIVE VITAL SIGNS: See the electronic medical record. GENERAL: The patient is intubated and has received some sedation. HEART: Tachycardic with regular rhythm. ABDOMEN: Tense with some softness but his abdomen is greatly distended. There is periumbilical ecchymosis. PATIENT EDUCATION The situation was discussed with the patient's outside of the patient's room. I did explain the nature of pancreatitis with massive third spacing of fluid leading to an abdominal compartment syndrome. I had originally explained to his that I felt the patient needed transfer to [place] if he was stable. I did discuss with her again the situation when his blood pressure decreased and recommended emergent bedside decompressive laparotomy. I had previously explained the concept of decompressive laparotomy to his and she had had opportunity to ask questions about the situation. She was in agreement with decompressive laparotomy when it was recommended. TA
[2018-02-01 19:52] VITALS: BP 102/52; PULSE 101; RESP 14; O2SAT 92
--- NOTE | 2018-02-02 08:17 | Operative Note ---
DATE OF OPERATION 02/01/2018 SURGEON Ghanshyam Damon MD PREOPERATIVE DIAGNOSES 1. Severe acute pancreatitis. 2. Abdominal compartment syndrome. 3. Status post Code Blue. 4. Ongoing shock. POSTOPERATIVE DIAGNOSES 1. Severe acute pancreatitis. 2. Abdominal compartment syndrome. 3. Status post Code Blue. 4. Ongoing shock. PROCEDURE Emergency decompressive laparotomy at the bedside. ANESTHESIA IV paralytics and medications were given by the [facility]. ASA CLASS 4E INDICATIONS The patient is a 67-year-old male with severe pancreatitis who clinically appeared to have developed an abdominal compartment syndrome and shock. He did code shortly prior to this procedure and despite pressor administration following his resuscitation he became hypotensive again. FINDINGS The abdomen contained about 1200 mL of free fluid. The retroperitoneum was dilated though not carefully inspected given the environment in which the procedure was performed. The pancreas did palpate as significantly inflamed. An orogastric tube was able to be positioned in the stomach. Systolic pressures did improve with decompression of the abdomen. DESCRIPTION OF PROCEDURE The procedure was performed at the bedside in the CCU. The patient's abdomen was prepped with chlorhexidine and draped with sterile towels and a full procedure drape. A midline laparotomy incision was then created with the cut mode of the cautery unit and electrocautery was used to dissect down through the subcutaneous tissue. The fascia was opened in the midline. I inserted my fingers into the peritoneal cavity and protected the underlying contents as the fascia was opened along the midline. A large laparotomy incision was created. The abdomen was then suctioned free of fluid. Hemostasis along the fascial edges and subcutaneous tissue was achieved with electrocautery. There were some adhesions of the omentum in the right lower quadrant. These were taken down with cautery so that the omentum was free and the bowel loops could decompress through the laparotomy incision. There was significant bulging of the abdominal contents through the laparotomy incision with multiple dilated bowel loops. Anesthesia had placed an orogastric tube. This could not be palpated in the stomach until it was advanced. It was confirmed to be in good position by palpation. The bowel loops were covered with a sterile blue towel and a 19 Rakesh drain was placed within the peritoneal space. The abdomen was then covered with an Ioban dressing and a Tegaderm dressing at the exit site of the drain. The drain would not maintain suction but was left in position. The patient tolerated the procedure. He remained in the CCU in critical condition but did seem to have better systolic pressures at the end of the procedure. TA
[2018-02-02] MEDS ORDERED: NON-FORMULARY MEDICATION 1 EACH EACH (Nifedipine [Nifedipine Er] 90 MG) PO SCH (09:00)
--- NOTE | 2018-02-04 16:49 | Discharge Summary ---
Discharge Information Date of admission: 01/27/18 08:27 Attending Physician: Barrington Hodgson MD Primary care physician: Efe Pena, DO Consults: 02/01/18 15:28 Physician Consult [CONS] Routine Consulting Provider: Ghanshyam Damon Reason For Exam: abd compartment syndrome? Ordering Provider has Notified Client Experience Administrator: Yes Acute pancreatitis: Acute Abdominal Compartment Syndrome Acute hypoxic resp failure: E.Coli Bacteremia. Hypocalcemia: Hypokalemia: ABHISHEK on CKD stage 3 Hypertriglyceridemia: Hx HTN: DMII, diet controlled: GERD Renal artery stenosis (s/p L balloon angioplasty 2014 - Dr Blackwell.) BPH (s/p TUNA procedure) Cardiopulmonary arrest - Laboratory Labs: 02/01/18 15:16 02/01/18 15:16 - Microbiology Microbiology 02/01/18 04:44 Peripheral/Iv Start Gram Stain - Final 02/01/18 04:44 Peripheral/Iv Start Blood Culture - Final Escherichia coli 02/01/18 04:53 Peripheral/Iv Start Gram Stain - Final 02/01/18 04:53 Peripheral/Iv Start Blood Culture - Final Escherichia coli - Radiology Radiology: CT abd/pelvis: 1. Severe acute pancreatitis with probable severe reactive ileus. 2. Nonobstructing 3 mm proximal left ureteral stone with additional left nephrolithiasis. 3. Third spacing of fluid with ascites and small effusions. History of Present Illness HPI: From H&P: "Patient is a 67 yo male who sees Dr. Flor for primary care. He presented to [facility] ER at 230 am due to severe abdominal pain which woke him up at 2am. He had CT [place] [address], with nl liver function. He has CKD Stage 3 and may have ABHISHEK given his creatinine of 2.24 and GFR of 29.6 on current lab. He has h/o pancreatitis 2 previous times, the most recent in 2014. He does not drink etoh and takes fenofibrate for hypertriglyceridemia. He had increasing pain by the time he arrived at ER rating it 9/10. He also developed vomiting secondary to the pain. He received morphine, fentanyl, zofran and reglan in ER and Fentanyl in route to our facility. At time of interview, rates his pain 7/10 and c/o nausea. He doesn't drink etoh . Had been feeling fine yesterday. Last ate a pecan priscila cookie late evening. Last nl BM yesterday morning." Objective Vital signs: Temperature 99.2 F 02/01/18 16:41 Pulse Rate 101 H 02/01/18 17:30 Respiratory Rate 14 02/01/18 17:30 Blood Pressure 102/52 02/01/18 17:15 Pulse Oximetry 92 02/01/18 17:15 Height/Weight/BMI: Height 5 ft 9 in Weight 87.5 kg Body Mass Index 28.5 - Additional findings Additional findings: See exam from note on same day Hospital Course This is a general summary of the patient's hospital course. For more details refer to the complete medical record. Acute pancreatitis: No EtOH, gallstone, severe hypertriglyceridemia. Idiopathic. Was made NPO since admit 01/27. Lipase normalized by the last day of the hospitalization. Pt was given copious IVF during the hospital course. Pt was started on cipro/flagyl due to fever overnight 01/31-02/01. Acute compartment syndrome Up until the last day, pt was hemodynamically stable. His abdomen became severely distended, and on the day prior to transfer pt became severely hypotensive and coded. See below. Bladder pressure 25. Consulted Dr. Damon , who performed urgent decompressive laparotomy. As noted below, pt transferred to SICU at [facility]. Cardiopulmonary arrest On the day of transfer, pt developed severe hypertension, with SBP 246. 2 of pts 3 BP meds restarted. Pt decompensated this afternoon with severe hypotension , with SBP down to the 50s. Suspect inadequate venous return from IVC compression in part due to high intraabdominal pressure. Abd distended. Bladder pressure obtained with a pressure of 25. Fluid bolus initiated, started on levophed. Dr. Damon was urgently consulted, who presented to pt bedside Pt coded, with absent pulse. CPR initiated, which was continued for approx 4 minutes. 1mg IV epi was given upon starting CPR. Pulse obtained, and pt intubated. Art line placed. Pt was hypotensive, started on vasopressin, and then later dopamine was added. LR bolus wide open since the initial hypotension prior to the code. Called Dr. Reyes covering SICU at [facility], who agreed to take the patient. Dr. Damon then performed emergency laparotomy to decompress abdominal pressure. Blood cx just returned growing E.Coli. Given potential for ESBL E.Coli, pt given dose of ertapenem. Discussed with , and she says the allergy to PCN wasn't a severe allergy per her knowledge. Pt also given 1g Calcium Chloride based on hypocalcemia. Transferring to SICU at [facility] [place]. Acute hypoxic resp failure: Due to 3rd spacing from fluid resuscitation for pancreatitis. Was placed on BiPAP with settings 16/6. Hypocalcemia: Due to pancreatitis. Pt given Calcium Gluconate. Hypokalemia: Replaced. ABHISHEK on CKD stage 3 Baseline Cr 1.8, peaked at 2.5, and then improved to 2.2 before worsening after the code, at 2.7. Hypertriglyceridemia: On fenofibrate at home. Held while here. HTN: Pt developed severe HTN during hospitalization. DMII: Diet controlled. SSI GERD PPI Renal artery stenosis (s/p L balloon angioplasty 2014 - Dr Blackwell.) No acute issues. BPH (s/p TUNA procedure) No acute issues. Hospital Course Summary Disclaimer: The visit summary below is not to be considered part of the above Progress Note. Hospital Course: 01/27/18 Admit to CCU, IP. Stay expected to exceed two midnights for IVF's and pain control for pancreatitis. CT reviewed from outside facility showing acute pancreatitis and nonobstructing renal stones. Will obtain GB US to exclude stones/cholecystitis. CBC, CMP, UA. Labs reviewed from outside facility. NPO. Hold home meds. IVF's. Morphine IV for pain (doesn't tolerate Dilaudid), Zofran IV and/or promethazine 25 IM (pt preference) PRN nausea. Protonix 40mg IV for GI ppx and GERD. Accuchecks, SSI. SCD's for VTE ppx. FULL CODE. Dr Flor - PCP. 01/28/18 Lipase with gradual decrease. Renal status and electrolytes stable. WBC decreasing. BP and HR stable. Will transfer to medical floor for continuation of care. Need to continue NPO status to help resolve pancreatitis. Continue IVF. 01/29/18 Renal function worse today. Cr 1.6-->2.5. BUN 36.0-->57.0. Postvoid bladder scan 350. Place [facility]. Bolus NS 500 and increase LR to 150ml/hr. Can try sips of water and ice chips. Calcium low today - likely r/t to his pancreatitis -continue to monitor. SCD/Lovenox for VTE ppx. 01/30/18 With calcium and phos decreasing, will give 1 amp IV calcium gluconate and then KPhos bolus. Continue with IVF for support. Tolerating sips of water without increased nausea, ab pain, or increased lipase. Could cautiously try clear liquids. Will start routine Miralax and Dulcolax suppository tomorrow for ileus. Encourage ambulation as able. Continue with pain control. Recheck CMP, Mg, Phos, Lipase, LDH and CBC in am secondary to pancreatitis. 01/31/18 Pt worsening. Abd continues to be very distended/painful. Check CT abd/pelvis. Pt tachypneic and now requiring 2L O2. CXR shows hypoinflation with small pleural effusions and lower lobe atelectasis. Weight up 9# since admission. Yesterday pt had 1 amp IV calcium gluconate and KPhos bolus (for calcium of 4.7 and phos 2.1). Calcium remains low today at 4.7. Currently receiving LR at 150cc/hr. BP's stable, tachypneic and tachycardic . Afebrile. 02/01 Increasing pulm edema and LE edema, normalized lipase. Decreased IVF, transition off BiPAP to vapotherm if able and wean off sedation. On cipro and flagyl now, as spiked fever overnight. Monitor in ICU. Severe HTN, 2 of 3 BP home PO BP meds restarted. See above for further description of events Hospital course: 01/27/18 Admit to CCU, IP. Stay expected to exceed two midnights for IVF's and pain control for pancreatitis. CT reviewed from outside facility showing acute pancreatitis and nonobstructing renal stones. Will obtain GB US to exclude stones/cholecystitis. CBC, CMP, UA. Labs reviewed from outside facility. NPO. Hold home meds. IVF's. Morphine IV for pain (doesn't tolerate Dilaudid), Zofran IV and/or promethazine 25 IM (pt preference) PRN nausea. Protonix 40mg IV for GI ppx and GERD. Accuchecks, SSI. SCD's for VTE ppx. FULL CODE. Dr Flor - PCP. 01/28/18 Lipase with gradual decrease. Renal status and electrolytes stable. WBC decreasing. BP and HR stable. Will transfer to medical floor for continuation of care. Need to continue NPO status to help resolve pancreatitis. Continue IVF. 01/29/18 Renal function worse today. Cr 1.6-->2.5. BUN 36.0-->57.0. Postvoid bladder scan 350. Place Henriquez. Bolus NS 500 and increase LR to 150ml/hr. Can try sips of water and ice chips. Calcium low today - likely r/t to his pancreatitis -continue to monitor. SCD/Lovenox for VTE ppx. 01/30/18 With calcium and phos decreasing, will give 1 amp IV calcium gluconate and then KPhos bolus. Continue with IVF for support. Tolerating sips of water without increased nausea, ab pain, or increased lipase. Could cautiously try clear liquids. Will start routine Miralax and Dulcolax suppository tomorrow for ileus. Encourage ambulation as able. Continue with pain control. Recheck CMP, Mg, Phos, Lipase, LDH and CBC in am secondary to pancreatitis. 01/31/18 Pt worsening. Abd continues to be very distended/painful. Check CT abd/pelvis. Pt tachypneic and now requiring 2L O2. CXR shows hypoinflation with small pleural effusions and lower lobe atelectasis. Weight up 9# since admission. Yesterday pt had 1 amp IV calcium gluconate and KPhos bolus (for calcium of 4.7 and phos 2.1). Calcium remains low today at 4.7. Currently receiving LR at 150cc/hr. BP's stable, tachypneic and tachycardic . Afebrile. 02/01 Increasing pulm edema and LE edema, normalized lipase. Decreased IVF, transition off BiPAP to vapotherm if able and wean off sedation. On cipro and flagyl now, as spiked fever overnight. Monitor in ICU. Discharge Plan - Discharge Disposition Disposition: To [facility] [place] Acute Care *Condition: Stable Reason For Visit (Visit label in EMR): Pancreatitis - Discharge Medications *Discharge Medications: Discontinued Labetalol HCl 450 mg PO BID #0 HydroCHLOROthiazide [Hydrodiuril] 1 tab PO DAILY NIFEdipine [Nifedipine ER] 90 mg PO DAILY No Action Multivit with Iron-Minerals 1 tab PO DAILY #0 Atorvastatin Calcium 20 mg PO HS #0 Potassium Citrate [Potassium Citrate ER] 20 meq PO BID #0 LINAGLIPTIN 5mg [Tradjenta] 5 mg PO DAILY #0 Doxazosin [Cardura] 0.5 tab PO HS Buspirone HCl 10 mg PO BID Loratadine [Claritin] 10 mg PO PRN Acetaminophen [Acetaminophen Extra Strength] 1,000 mg PO Q4HPRN PRN PRN Reason: Pain Aspirin *EC* [Ecotrin] 1 tab PO DAILY Fenofibrate Nanocrystallized [Fenofibrate] 145 mg PO DAILY Fluticasone Nasal [place] [Flonase] 2 spray NS HS #0 Ranitidine [Zantac] 150 mg PO PRN Allopurinol [Zyloprim] 300 mg PO DAILY Sertraline HCl [Zoloft] 200 mg PO DAILY - Discharge Packet/Instructions *Diet: NPO *Activity: To ICU. Bedrest. - Referrals/Follow Up - Patient Handouts Patient Handouts: Pancreatitis (GEN) - Dismissal Complete Discharge Instructions are:: Complete Physician Narrative - Narrative Physician: other Attestation Narrative: Date: 02/04/18 Time: 3051
== END 2018-02-01 17:30 | disposition short-term general hospital (02) | DRG 981 ==
LOC: CCU → SUATTDRO 08:27 → MED 01-28 14:05 → CCU 01-31 17:45
PROVIDERS: ADMIT Hospitalist; ATTEND Family Medicine